=== PATIENT | male | born 1945 | race Caucasian/White ===

== ENCOUNTER 2019-04-25 21:31 | Inpatient (IN) ==
[2019-04-25 22:23] LABS: Basophils % 0.6 %; Eosinophils # 0.1 K/mcL (0.0-0.6); Eosinophils % 1.1 %; Hematocrit 43.3 % (37.5-50.1); Hemoglobin 14.2 g/dL (12.9-16.9); Immature Granulocytes % 0.2 % (0-4); Lymphocytes # 1.6 K/mcL (0.6-4.6); Lymphocytes % 24.9 %; Mean Corpuscular HGB Conc 32.8 g/dL (31.6-35.5); Mean Corpuscular Hemoglobin 31.9 pg (28.0-33.3); Mean Corpuscular Volume 97.3 fL (83.0-100.0); Monocytes # 0.6 K/mcL (0.0-1.3); Monocytes % 9.5 %; Neutrophils # 4.2 K/mcL (1.6-8.9); Platelet Count 218 K/mcL (140-400); Red Blood Count 4.45 M/mcL (4.19-5.50); Red Cell Distribution Width 13.7 % (11.5-14.5); Segmented Neutrophils % 63.7 %; White Blood Count 6.6 K/mcL (4.3-11.1)
[2019-04-25 22:44] LABS: BUN/Creatinine Ratio 25 (6-26); Blood Urea Nitrogen 23 mg/dL (8-23); Carbon Dioxide 26 mEq/L (23-29); Chloride 108 mEq/L (98-107); Glucose 126 mg/dL (70-105); Osmolality,Calculated 297 (280-300); Potassium 4.3 mEq/L (3.5-5.1); Sodium 141 mEq/L (136-145); eGFR For African Americans > 60 (> 60); eGFR For Non-African Americans > 60 (> 60)
[2019-04-25 22:45] LABS: Troponin I 0.03 ng/mL (< 0.04)
[2019-04-25] MEDS ORDERED: Aspirin 81 MG TAB.CHEW PO ONE (23:44)
--- NOTE | 2019-04-25 23:57 | Emergency Department Note ---
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 transplanted heart: [place] heart Associated angina: with unstable angina Qualified Code(s): I25.110 - Atherosclerotic heart disease of [place] coronary artery with unstable angina pectoris Disposition: Admitted As Inpatient Time of Disposition: 00:09 Chest Pain HPI - General Chief Complaint: ED Chest Pain Stated Complaint: CP Time Seen by Provider: 04/25/19 21:52 Source: patient Mode of arrival: ambulatory Limitations: no limitations Vital Signs Reviewed: Yes Nursing Notes Reviewed: Yes - History of Present Illness HPI Narrative: 73M with PMHx of [place] with 2 stents placed 4 years ago, DM, HTN, HLD presents emergency department after an episode of chest pain. Patient states that he has been having worsening chest pains over the past 5 weeks and has been taking his nitroglycerin more frequently. Patient's states that he will take his nitroglycerin up to 5 times per day. He has been trying to get an outpatient catheter scheduled but today when he was walking outside to feed his dog's he got a severe episode of chest pain which radiated down his left arm. He took 2 nitroglycerin and was about to take a third before the chest pain started improving. His brought him into the emergency department and he is currently chest pain-free. He describes the pain as a tightness and was associated with some nausea but no vomiting or diaphoresis. He denies fever, chills, cough, shortness of breath, abdominal pain. Severity scale (1-10): 8 - Related Data Home Medications Medication Instructions Recorded Confirmed Aspirin 81 mg PO DAILY 01/23/17 04/25/19 Atorvastatin [Lipitor] 20 mg PO HS 01/23/17 04/25/19 Cholecalciferol (D-3) [Vitamin D] 1,000 unit PO DAILY 01/23/17 04/25/19 Clopidogrel [Plavix] 75 mg PO DAILY 01/23/17 04/25/19 Furosemide [Lasix] 20 mg PO DAILY 01/23/17 04/25/19 Insulin Glargine [Lantus] 18 unit SQ HS PRN 01/23/17 04/25/19 Losartan [Cozaar] 25 mg PO TID 01/23/17 04/25/19 Metformin HCl [Glucophage] 500 mg PO QID 01/23/17 04/25/19 Metoprolol [Lopressor] 12.5 mg PO BID 01/23/17 04/25/19 Nitroglycerin [Nitrostat] 0.4 mg SL Q5M PRN 01/23/17 04/25/19 Pantoprazole Sodium [Protonix] 40 mg PO DAILY 01/23/17 04/25/19 Ranolazine [Ranexa] 500 mg PO BID 01/23/17 04/25/19 Empagliflozin [Jardiance] 10 mg PO DAILY 03/26/18 04/25/19 amLODIPine [Norvasc] 5 mg PO DAILY 03/26/18 04/25/19 Isosorbide Mononitrate 60 mg PO DAILY 04/25/19 04/25/19 Allergies Allergy/AdvReac Type Severity Reaction Status Date / Time tramadol [From Ultram] AdvReac See Verified 04/25/19 21:32 Comments All systems ED: reviewed and negative except as stated. Review of Systems: As Per HPI Constitutional: Denies: fever, chills, weakness Cardiovascular: Reports: chest pain. Denies: palpitations, dyspnea on exertion Respiratory: Denies: cough, dyspnea, wheezes Gastrointestinal: Denies: abdominal pain, nausea, vomiting Musculoskeletal: Denies: back pain, neck pain Neurological: Denies: headache Endocrine: Denies: fatigue Chest Pain PMH - Past Medical History Medical history: Reports: cancer, coronary artery disease, diabetes, GERD, hyperlipidemia, hypertension, kidney stones, myocardial infarction, renal disease, thyroid disease, other Surgical history: Reports: angioplasty/stent, cancer surgery, cholecystectomy, vasectomy, other Psychiatric history: Reports: depression, PTSD - Social History Smoking Status: Former smoker Alcohol use: Reports: none Drug use: Reports: none Physical Exam - General Limitations: no limitations General appearance: alert, in no apparent distress - Head Head exam: atraumatic, normocephalic - Eye Eye exam: Present: normal appearance, EOMI - Chest Chest inspection: Present: normal inspection. Absent: tenderness, rash - Respiratory Respiratory exam: Present: normal lung sounds bilaterally. Absent: wheezes - Cardiovascular Cardiovascular exam: Present: regular rate, normal rhythm - Abdominal Exam Abdominal exam: Present: soft, Non-Tender. Absent: distention, guarding, rebound, rigidity - Extremities Exam Extremities exam: Present: normal inspection. Absent: tenderness, pedal edema - Neurological Exam Neurological exam: Present: alert, oriented X3 - Psychiatric Psychiatric exam: Present: normal affect, normal mood - Skin Skin exam: Present: warm, dry, intact Course Vital Signs Temperature 97.9 F 04/25/19 21:33 Pulse Rate 72 04/25/19 21:33 Respiratory Rate 20 04/25/19 21:33 Blood Pressure 170/80 04/25/19 21:33 O2 Sat by Pulse Oximetry 98 04/25/19 21:33 Temperature 97.9 F 04/25/19 21:33 Pulse Rate 62 04/25/19 23:33 Respiratory Rate 16 04/25/19 23:33 Blood Pressure 147/73 04/25/19 23:33 O2 Sat by Pulse Oximetry 98 04/25/19 23:33 Oxygen Delivery Oxygen Delivery Room Air Chest Pain - MDM Narrative Medical decision making narrative: Patient presents with signs and symptoms concerning for unstable angina. We will obtain a cardiac workup and administer aspirin to the patient. 2330 - patient's EKG demonstrated some new ST segment depressions in the anterior leads. He is currently chest pain-free at this time and initial troponin was negative. Spoke with the on-call wildlife science professor Dr. Farrell who is made aware of this patient and does not think he needs intervention at this time. Patient will be admitted to the hospital for further cardiac workup and treatment of his unstable angina. 0008 - Pt has been accepted by Dr. Terrazas - Medical Records Medical records reviewed: Yes I reviewed the patient's medical records. - Lab Data Lab results reviewed: Yes I reviewed the patient's lab results. Result diagrams: 04/25/19 22:12 04/25/19 22:12 Lab Results 04/25/19 04/25/19 Range/Units 22:12 22:12 WBC 6.6 (4.3-11.1) K/mcL RBC 4.45 (4.19-5.50) M/mcL Hgb 14.2 (12.9-16.9) g/dL Hct 43.3 (37.5-50.1) % MCV 97.3 (83.0-100.0) fL MCH 31.9 (28.0-33.3) pg MCHC 32.8 (31.6-35.5) g/dL RDW 13.7 (11.5-14.5) % Plt Count 218 (140-400) K/mcL MPV 10.0 (9.4-12.4) fL Immature Gran % 0.2 (0-4) % Seg Neutrophils % 63.7 % Lymphocytes % 24.9 % Monocytes % 9.5 % Eosinophils % 1.1 % Basophils % 0.6 % Neutrophils # 4.2 (1.6-8.9) K/mcL Lymphocytes # 1.6 (0.6-4.6) K/mcL Monocytes # 0.6 (0.0-1.3) K/mcL Eosinophils # 0.1 (0.0-0.6) K/mcL Basophils # 0.0 (0.0-0.2) K/mcL Sodium 141 (136-145) mEq/L Potassium 4.3 (3.5-5.1) mEq/L Chloride 108 H (98-107) mEq/L Carbon Dioxide 26 (23-29) mEq/L BUN 23 (8-23) mg/dL Creatinine 0.92 (0.70-1.30) mg/dL Est GFR ( Amer) > 60 (> 60) Est GFR (Non-Af Amer) > 60 (> 60) BUN/Creatinine Ratio 25 (6-26) Glucose 126 H (70-105) mg/dL Calculated Osmolality 297 (280-300) Calcium 9.0 (8.6-10.3) mg/dL Troponin I 0.03 (< 0.04) ng/mL - Radiology Data Radiology results reviewed: Yes I reviewed the patient's radiology results. - EKG Data EKG attestation: Yes I reviewed and interpreted this EKG. EKG results narrative: EKG obtained at 2137 on 04/25/2019 Heart rate 65 bpm, MS interval 160, QRS duration 89, QT 389, QTC 400 Sinus rhythm with no ST segment elevations. There are ST segment depressions in leads V2, V3, V4 and V5. These are new from old EKG obtained 03/19/2018. T-wave inversion in lead 3 is unchanged from previous. No other acute changes. Heart Score - Score History: Moderately Suspicious EKG: Significant ST-Depression Age: Greater than 65 Risk Factors: Equal/Greater than 3 risk factor or history of atherosclerotic disease Troponin: Less than normal limit HEART Score Total: 7 Attestation Statement - Attestation Attestation: I, Edson Ervin, examined this patient and my medical decision-making was reviewed with the INSIDE METER TESTER/PA/Advanced Practice Nurse/Resident Physician. I agree with the documented findings, disposition and treatment plan as described except to the extent set forth below. 73-year-old male presents emergency Department with concerns of chest pain. Patient states he has a history of coronary artery disease with 2 stents in p [place]. Patient states that he is become increasingly short of breath and weak and fatigued with exertion. Today when he went to go feed his dog's he had acute onset of severe chest pain. Patient took bench of glycerin and is pain improved. Initial EKG was concerning for ACS with ST depressions in leads V2, V3, V4. The wildlife science professor was contacted regarding these EKG changes who recommended that it was not a STEMI and recommended the patient be admitted to the hospitalist for further care and evaluation. Initial troponin was negative. Patient will be admitted to the hospitalist for further care and evaluation.
[2019-04-26] MEDS ORDERED: *HR* Heparin 5,000 UNIT/ML VIAL IVP PRN ×2 (00:06)
[2019-04-26] MEDS ORDERED: *HR* Heparin 5,000 UNIT/ML VIAL IVP ONE (00:06)
[2019-04-26] MEDS: Heparin 25,000 UNIT/250 ML D5W 25,000 UNIT/250 ML IV.SOLN IVC SCH (00:41)
[2019-04-26 00:42] LABS: Heparin anti-factor XA UFH 0.04 IU/mL (0.30-0.70)
[2019-04-26 00:43] LABS: Prothrombin Time 11.4 Seconds (9.4-12.1)
[2019-04-26] MEDS ORDERED: Naloxone 0.4 MG/ML INJ IVP PRN (02:00)
[2019-04-26] MEDS ORDERED: D5% in Water 1,000 ML IVC PRN (02:01)
[2019-04-26] MEDS ORDERED: *HR* Dextrose 50 % in Water (Syg) 50 ML SYRINGE IVP PRN (02:01)
[2019-04-26] MEDS ORDERED: Dextrose Gel 15 GM/37.5 ML TUBE PO PRN ×2 (02:01)
--- NOTE | 2019-04-26 02:39 | Internal Med History&Physical ---
Date of Encounter: 04/26/19 Time of Encounter: 01:30 Internal Medicine - H&P: HPI Chief complaint: Chest Pain Admitted From: Home Plans for Post Hospital Care: Home History of present illness: Mr. Almaguer is a 73 year old male with past medical history significant for CAD with stents x2, ID, hypertension, hyperlipidemia, diabetes, neuropathy, gerd, kidney stones, depression, PTSD, and skin cancer who presents for complaints of intermittent substernal chest pain that radiates down his left arm and is described as tightness. Pain is exacerbated with exertion and improved with rest and nitroglycerin. Reports taking up to 5-6 nitroglycerin tablets per day. Reports pain is 8/10 when at its worst and has been happening more frequently and becoming more severe. Pain is associated with shortness of breath, lighthea dedness, and nausea. Reports following with [facility]iology at the [facility] who has been planning an outpatient heart catheterization but pain became more severe so came to ER. ER reported EKG as sinus rhythm with no ST elevations, however with new ST segment depressions in leads V2, V3, V4, and V5 when compared with EKG from 03/19/2018, and T wave inversion in lead 3 which was unchanged from previous. Due to EKG changes, ER consulted with mirror fabrication supervisor ethernet network architect Dr Farrell who did not feel patient needed intervention at this time but recommended admission for further evaluation. ER also obtained chest xray which showed a negative portable study. Patient was started on Heparin drip, given aspirin, and patient self administed one home nitro in ER. Reports having Echocardiogram completed at the [facility] in February 2019 but is unsure of the results. Pain currently remains resolved at this time. Currently denies any headache, chest pain, shortness of breath, abdominal pain, bowel or bladder changes. Checks blood sugars regularly at home and reports they have been averaging in the 100's. Follows regularly with his PCP and Cardiology at the [facility]. Past Med Surg Social Fam HX - Past Medical History Medical history: cancer, coronary artery disease, diabetes, GERD, hyperlipidemia, hypertension, kidney stones, myocardial infarction, other Additional medical history: leg cramps, ED, hx of bronchitis,OA, hx of nmsc Psychiatric history: depression, PTSD - Past Surgical History Surgical History: angioplasty/stent, cancer surgery, cholecystectomy, vasectomy, other Additional surgical history: kidney stone removed. cardiac stents x 2 - Social History Smoking Status: Former smoker Smokeless Tobacco Status: No Alcohol use: none Drug use: none - Family History Mother Age: 38 Living Status: Sister Hx Family Neurologic Disorders: Yes (CVA) Brother Hx Family Endocrine Disorder: Yes (DM) Internal Medicine - H&P: Meds Aspirin 81 mg PO DAILY 01/23/17 [History] Atorvastatin [Lipitor] 20 mg PO HS 01/23/17 [History] Cholecalciferol (D-3) [Vitamin D] 1,000 unit PO DAILY 01/23/17 [History] Clopidogrel [Plavix] 75 mg PO DAILY 01/23/17 [History] Furosemide [Lasix] 20 mg PO DAILY 01/23/17 [History] Insulin Glargine [Lantus] 18 unit SQ HS PRN 01/23/17 [History] Losartan [Cozaar] 25 mg PO TID 01/23/17 [History] Metformin HCl [Glucophage] 500 mg PO QID 01/23/17 [History] Metoprolol [Lopressor] 12.5 mg PO BID 01/23/17 [History] Nitroglycerin [Nitrostat] 0.4 mg SL Q5M PRN 01/23/17 [History] Pantoprazole Sodium [Protonix] 40 mg PO DAILY 01/23/17 [History] Ranolazine [Ranexa] 500 mg PO BID 01/23/17 [History] Empagliflozin [Jardiance] 10 mg PO DAILY 03/26/18 [History] amLODIPine [Norvasc] 5 mg PO DAILY 03/26/18 [History] Isosorbide Mononitrate 60 mg PO DAILY 04/25/19 [History] Allergy/AdvReac Type Severity Reaction Status Date / Time tramadol [From Ultram] AdvReac See Verified 04/25/19 21:32 Comments All Systems PM: A 10-system review of systems was performed and is negative for pertinent findings except as documented above in the HPI. - Constitutional Vitals: Temp Pulse Resp BP Pulse Ox 98.6 F 58 16 158/75 96 04/26/19 01:39 04/26/19 01:39 04/26/19 01:39 04/26/19 01:39 04/26/19 01:39 Exam: General: Alert and oriented. Skin:Normal color, no rash, no lesions. Cardiovascular:Heart sounds distant, no rubs, murmurs or gallops. No JVD. Pulse regular. Lungs:Normal breath sounds, no wheezes or crackles. Abdomen:Soft, non-tender, no rigidity. Extremities:No deformity, tenderness, no joint swelling or clubbing. Nonpitting edema noted to bilateral lower extremities. Neurological:Normal cognition and motor skills. Pulses:Carotid and radial pulses normal +2. Rest of the physical exam is non contributory. Internal Med - H&P Results - Labs CBC & Chem 7: 04/25/19 22:12 04/25/19 22:12 Labs: Short CBC 04/25/19 Range/Units 22:12 WBC 6.6 (4.3-11.1) K/mcL Hgb 14.2 (12.9-16.9) g/dL Hct 43.3 (37.5-50.1) % Plt Count 218 (140-400) K/mcL Neutrophils # 4.2 (1.6-8.9) K/mcL BMP 04/25/19 22:12 Sodium 141 Potassium 4.3 Chloride 108 H Carbon Dioxide 26 BUN 23 Creatinine 0.92 Glucose 126 H Calcium 9.0 Cardiac Enzymes 04/25/19 Range/Units 22:12 Troponin I 0.03 (< 0.04) ng/mL - Impressions ITS Impressions Chest X-Ray 04/25/19 22:40 IMPRESSION: Negative portable study. D/ / Chantell Lang Cha, MD / Chantell Lang Cha, MD Interpreting Provider: Chantell Lang Cha, MD - Assessment and Plan (1) Chest pain Current Visit: Yes Status: Acute Assessment and plan: Presents for intermittent chest pain worse with exertion over past 5 weeks getting progressively worse. Reports taking up to 5-6 nitroglycerin tablets per day which improves pain. Follows with [facility] who has been planning outpatient heart catheterization but pain became more intense so came to ER. ER reported EKG as sinus rhythm with no ST elevations, however with new ST segme nt depressions in leads V2, V3, V4, and V5 when compared with EKG from 03/19/2018, and T wave inversion in lead 3 which was unchanged from previous. Due to EKG changes, ER consulted with mirror fabrication supervisor ethernet network architect Dr Farrell who did not feel patient needed intervention at this time but recommended admission for further evaluation. ER started patient on heparin drip, will continue same. Initial troponin negative, serial troponins ordered. Cardiology consult ordered, will need called in a.m. Continuos cardiac monitoring. NPO. Qualifiers: Chest pain type: unspecified Qualified Code(s): R07.9 - Chest pain, unspecified (2) Diabetes mellitus Current Visit: Yes Status: Chronic Assessment and plan: Hold home diabetic medications. Sliding scale insulin ordered. Accu-Chek's ordered. Qualifiers: Diabetes mellitus type: type 2 Diabetes mellitus usp insulin use: unspecified usp insulin use status Diabetes mellitus complication status: with other specified complication Qualified Code(s): E11.69 - Type 2 diabetes mellitus with other specified complication (3) Hypertension Current Visit: Yes Status: Chronic Assessment and plan: Continue home medications once verified. Qualifiers: Hypertension type: unspecified Qualified Code(s): I10 - Essential (primary) hypertension (4) GERD (gastroesophageal reflux disease) Current Visit: Yes Status: Chronic Assessment and plan: Continue home medications once verified. Qualifiers: Qualified Code(s): K21.9 - Gastro-esophageal reflux disease without esophagitis - Time Spent With Patient Total time spent is greater than 50% in coordination of care (as documented) at patient's floor/unit and/or counseling patient:
[2019-04-26] MEDS: Insulin LISPRO 300 UNITS/3 ML VIAL SQ SCH ×2 (05:21→18:32)
[2019-04-26 05:55] LABS: Basophils % 0.5 %; Eosinophils # 0.1 K/mcL (0.0-0.6); Hematocrit 39.3 % (37.5-50.1); Hemoglobin 12.8 g/dL (12.9-16.9); Immature Granulocytes % 0.3 % (0-4); Lymphocytes # 2.1 K/mcL (0.6-4.6); Lymphocytes % 33.4 %; Mean Corpuscular HGB Conc 32.6 g/dL (31.6-35.5); Mean Corpuscular Hemoglobin 31.4 pg (28.0-33.3); Mean Corpuscular Volume 96.6 fL (83.0-100.0); Mean Platelet Volume 10.3 fL (9.4-12.4); Monocytes # 0.5 K/mcL (0.0-1.3); Neutrophils # 3.6 K/mcL (1.6-8.9); Platelet Count 188 K/mcL (140-400); Red Blood Count 4.07 M/mcL (4.19-5.50); Red Cell Distribution Width 13.6 % (11.5-14.5); Segmented Neutrophils % 56.8 %; White Blood Count 6.3 K/mcL (4.3-11.1)
[2019-04-26 06:13] LABS: BUN/Creatinine Ratio 29 (6-26); Blood Urea Nitrogen 24 mg/dL (8-23); Calcium 8.7 mg/dL (8.6-10.3); Carbon Dioxide 27 mEq/L (23-29); Chloride 107 mEq/L (98-107); Glucose 114 mg/dL (70-105); Osmolality,Calculated 297 (280-300); Potassium 3.7 mEq/L (3.5-5.1); Sodium 141 mEq/L (136-145); eGFR For African Americans > 60 (> 60); eGFR For Non-African Americans > 60 (> 60)
[2019-04-26] MEDS ORDERED: Nitroglycerin 0.4 MG TAB.SUBL SL PRN (10:57)
--- NOTE | 2019-04-26 12:02 | Cardiology Consult Note ---
Date of Encounter: 04/26/19 Time of Encounter: 09:30 Assessment and Plan (1) Non-STEMI (non-ST elevated myocardial infarction) Current Visit: Yes Status: Acute Pt's symptoms consistent with unstable angina. Has known CAD. Troponin slightly elevated at 0.26. Currently CP free. Will plan on cardiac catheterization on Sunday. Discussed with patient and daughter. Continue aspirin, Plavix, beta blockade, heparin gtt, statin. (2) Unstable angina Current Visit: Yes Status: Acute (3) CAD (coronary artery disease) Current Visit: Yes Status: Chronic Qualifiers: Coronary Disease-Associated Artery/Lesion type: [place] artery [place] vs. transplanted heart: [place] heart Associated angina: with unstable angina Qualified Code(s): I25.110 - Atherosclerotic heart disease of [place] coronary artery with unstable angina pectoris (4) Hypertension Current Visit: No Status: Chronic Continue current meds. Qualifiers: Hypertension type: essential hypertension Qualified Code(s): I10 - Essential (primary) hypertension Discussion w patient/family: The assessment and plan as outlined above was discussed with the patient and/or family members who expressed understanding and agreement. All questions were answered. Thank you for involving us in the care of your patient. Please call with any questions. History of Present Illness Consult date: 04/26/19 Requesting physician: Chai Quintero Consult reason: chest pain Chief complaint: chest pain History of present illness: Mr. Almaguer is a 73 year old male with CAD s/p PCI, HTN, hyperlipidemia, DM presents to [facility] with c/o CP. For past 6 weeks, pt having intermittent CP radiating down L arm with exertion. Associated with SOB, lightheadedness. Has had a few episodes awake him from sleep, but usually notices mostly when exerting self. Has been intermittently taking one SL NTG which resolves pain. Yesterday, had episode of CP while out feeding dog that didn't resolve until after taking 2 SL NTG therefore presented for further evaluation/tx. Feels similar to previous angina. Denies palpitations, syncope. Denies weight gain, PND. Currently sleeping on 3 pillows for past 3 weeks- states will have recurrent CP if lies flat on back. Has known history of CAD s/p PCI RCA in 2014. No cardiac catheterizations or testing since that time. Currently CP free. EKG demonstrates NSR with nonspecific ST-T wave changes. Troponins 0.03, 0.26. Cardiac catheterization February 2015: Patient had successful PTCA/Drug-Eluting Stent placement in the proximal RCA. There is severe one vessel coronary artery disease. The left ventricle is normal and has normal contractility EF 55%. Right dominant * Left Main Coronary Artery There is a 20% stenosis in the mid LMCA. * Left Anterior Descending There is a 40% stenosis in the Mid LAD. * Circumflex The Circumflex is angiographically free of disease. The 1st Marginal is angiographically free of disease. * Right Coronary Artery There is a 90% stenosis in the Proximal RCA. Past Med Surg Social Fam HX - Past Medical History Medical history: cancer, coronary artery disease, diabetes, GERD, h yperlipidemia, hypertension, kidney stones, myocardial infarction, other Additional medical history: leg cramps, ED, hx of bronchitis,OA, hx of nmsc Psychiatric history: depression, PTSD - Past Surgical History Surgical History: angioplasty/stent, cancer surgery, cholecystectomy, vasectomy, other Additional surgical history: kidney stone removed. cardiac stents x 2 - Social History Smoking Status: Former smoker Smokeless Tobacco Status: No Alcohol use: none Drug use: none - Family History Mother Age: 38 Living Status: Sister Hx Family Neurologic Disorders: Yes (CVA) Brother Hx Family Endocrine Disorder: Yes (DM) Medications and Allergies Aspirin 81 mg PO DAILY 01/23/17 [History] Atorvastatin [Lipitor] 20 mg PO HS 01/23/17 [History] Cholecalciferol (D-3) [Vitamin D] 1,000 unit PO DAILY 01/23/17 [History] Clopidogrel [Plavix] 75 mg PO DAILY 01/23/17 [History] Furosemide [Lasix] 20 mg PO DAILY 01/23/17 [History] Insulin Glargine [Lantus] 18 unit SQ HS PRN 01/23/17 [History] Losartan [Cozaar] 25 mg PO TID 01/23/17 [History] Metformin HCl [Glucophage] 500 mg PO QID 01/23/17 [History] Metoprolol [Lopressor] 12.5 mg PO BID 01/23/17 [History] Nitroglycerin [Nitrostat] 0.4 mg SL Q5M PRN 01/23/17 [History] Pantoprazole Sodium [Protonix] 40 mg PO DAILY 01/23/17 [History] Ranolazine [Ranexa] 500 mg PO BID 01/23/17 [History] Empagliflozin [Jardiance] 10 mg PO DAILY 03/26/18 [History] amLODIPine [Norvasc] 5 mg PO DAILY 03/26/18 [History] Isosorbide Mononitrate 60 mg PO DAILY 04/25/19 [History] Allergy/AdvReac Type Severity Reaction Status Date / Time tramadol [From Ultram] AdvReac See Verified 04/25/19 21:32 Comments All Systems Review: The remainder of the systems were reviewed and are negative - Cardiovascular Cardiovascular: as per HPI Physical Examination General: Conversant, No Apparent Distress HEENT: Atraumatic, Normocephaly, Mucus Membranes Moist Neck: No JVD, Normal carotid pulses Cardiac: Reg Rate and Rhythm, Normal S1 and S2, No Murmur Lungs: Normal Breath Sounds, No Wheeze, Rales, Rhonchi Neuro: Alert and responsive, No focal deficits noted Abdomen: Soft, Non-Tender Skin: No rashes noted on visualized skin Musculoskeletal: No Chest Wall Tenderness Extremities: No Clubbing, No Cyanosis, No Edema, Normal Pulses Results 04/26/19 04:45 04/26/19 04:45 Lab Results 04/25/19 04/25/19 04/26/19 22:12 22:12 00:18 WBC 6.6 Hgb 14.2 Hct 43.3 Plt Count 218 INR 1.0 Sodium 141 Potassium 4.3 Chloride 108 H Carbon Dioxide 26 BUN 23 Creatinine 0.92 Glucose 126 H Calcium 9.0 Troponin I 0.03 04/26/19 04/26/19 04/26/19 04:45 04:45 04:45 WBC 6.3 Hgb 12.8 L Hct 39.3 Plt Count 188 INR Sodium 141 Potassium 3.7 Chloride 107 Carbon Dioxide 27 BUN 24 H Creatinine 0.82 Glucose 114 H Calcium 8.7 Troponin I 0.26 H* 04/26/19 09:56 WBC Hgb Hct Plt Count INR Sodium Potassium Chloride Carbon Dioxide BUN Creatinine Glucose Calcium Troponin I 1.11 H* - EKG Interpretation EKG results cardiology: personally reviewed (EKG- NSR with nonspecific ST-T wave changes) Consult Discharge Plan - Plan Referrals: [facility] [Primary Care Provider] -
[2019-04-26] MEDS ORDERED: Perflutren Lipid Microsphere 1.3 ML in 0.9 % Sodium Chloride 8.7 ML IVP ONE (12:48)
--- NOTE | 2019-04-26 15:24 | Electrocardiograph Report ---
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
--- NOTE | 2019-04-26 15:32 | Electrocardiograph Report ---
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
[2019-04-26] MEDS: Aspirin 81 MG TAB.CHEW PO SCH (18:34)
[2019-04-26] MEDS: Ranolazine 500 MG TAB.ER.12H PO SCH (20:49)
[2019-04-27] MEDS: Heparin 25,000 UNIT/250 ML D5W 25,000 UNIT/250 ML IV.SOLN IVC SCH (00:35)
[2019-04-27] MEDS: Insulin LISPRO 300 UNITS/3 ML VIAL SQ SCH ×3 (09:14→17:15)
[2019-04-27] MEDS: Ranolazine 500 MG TAB.ER.12H PO SCH ×2 (09:17→20:38)
[2019-04-27] MEDS: Aspirin 81 MG TAB.CHEW PO SCH (09:17)
--- NOTE | 2019-04-27 10:25 | Internal Med Progress Note ---
Hospitalist Progress Note - Encounter Date of Encounter: 04/27/19 Time of Encounter: 10:22 - Subjective Interval History: Mr. Almaguer is a 73 year old male with past medical history significant for CAD with stents x2, DE, hypertension, hyperlipidemia, diabetes, neuropathy, gerd, kidney stones, depression, PTSD, and skin cancer who presents for complaints of intermittent substernal chest pain that radiates down his left arm and is described as tightness. Pain is exacerbated with exertion and improved with rest and nitroglycerin. Reports taking up to 5-6 nitroglycerin tablets per day. Reports pain is 8/10 when at its worst and has been happening more frequently and becoming more severe. Pain is associated with shortness of breath, lightheadedness, and nausea. Reports following with Cardiology at the [facility] who has been planning an outpatient heart catheterization but pain became more severe so came to ER. ER reported EKG as sinus rhythm with no ST elevations, however with new ST segment depressions in leads V2, V3, V4, and V5 when compared with EKG from 03/19/2018, and T wave inversion in lead III which was unchanged from previous. Due to EKG changes, ER consulted with ornamental iron worker treating plant pumper Dr Farrell who did not feel patient needed intervention at this time but recommended admission for further evaluation. ER also obtained chest xray which showed a negative portable study. Patient was started on Heparin drip, given aspirin, and patient self administed one home nitro in ER. Reports having Echocardiogram completed at the CT in February 2019 but is unsure of the results. Pain currently remains resolved at this time. Cu rrently denies any headache, chest pain, shortness of breath, abdominal pain, bowel or bladder changes. Checks blood sugars regularly at home and reports they have been averaging in the 100's. Follows regularly with his PCP and Cardiology at the CT. Trop was 0.03, 0.26. and 1.11. Started on heparin gtt. cardiology planned LHC on Sunday. He is chest pain free currently. - Exam Vitals: Temp Pulse Resp BP Pulse Ox 97.8 F 66 14 111/69 98 04/27/19 07:57 04/27/19 09:13 04/27/19 07:57 04/27/19 07:57 04/27/19 07:57 Exam: General: Alert and oriented. Skin:Normal color, no rash, no lesions. Cardiovascular:Heart sounds distant, no rubs, murmurs or gallops. No JVD. Pulse regular. Lungs:Normal breath sounds, no wheezes or crackles. Abdomen:Soft, non-tender, no rigidity. Extremities:No deformity, tenderness, no joint swelling or clubbing. Nonpitting edema noted to bilateral lower extremities. Neurological:Normal cognition and motor skills. Pulses:Carotid and radial pulses normal +2. Rest of the physical exam is non contributory. - Assessment and Plan (1) Non-STEMI (non-ST elevated myocardial infarction) Current Visit: Yes Status: Acute Assessment and Plan: EKG showed st-t depression and inverted t wave on II, III, and aVF, no obvious st-t elevation. Trop 0.03, 0.26, and 1.11. Started on Heparin gtt, Pt received asa and plavix per cardiology. On BB, bradycardia HR 43-62 overnight. Currently chest pain free, Plan LHC on Sunday. (2) Diabetes mellitus Current Visit: Yes Status: Chronic Assessment and Plan: Hold home diabetic medications. Sliding scale insulin ordered. Accu-Chek's ordered. BG well controlled at 100-130. (3) Hypertension Current Visit: No Status: Chronic Assessment and Plan: BP well controlled, bradycardia (hr 43-62)overnight. (4) GERD (gastroesophageal reflux disease) Current Visit: Yes Status: Chronic Assessment and Plan: Continue home medications. DVT Prophylaxis: Heparin gtt. - Time Spent with Patient Total time spent is greater than 50% in coordination of care (as documented) at patient's floor/unit and/or counseling patient: Greater than 35 minutes Plan of Care Discussed with: patient Internal Medicine: Result - Labs CBC & Chem 7: 04/26/19 04:45 04/26/19 04:45 Labs: Cardiac Enzymes 04/26/19 Range/Units 09:56 Troponin I 1.11 H* (< 0.04) ng/mL - ABG Interpretation ABG results: PT/INR, D-dimer PT 11.4 Seconds (9.4-12.1) 04/26/19 00:18 - Impressions Impressions Echocardiogram 04/26/19 13:39 Impressions: LVEF 55%. Normal LV chamber size, wall thickness and overall function. Mild segmental left ventricular systolic dysfunction. Moderate left ventricular diastolic dysfunction. Normal right ventricular structure and function. Mild aortic sclerosis. Mean gradient 10 mmHg. Mild pulmonary hypertension. Left Ventricular Wall Motion: Rest Echo Findings The basal inferior wall was hypokinetic. All other wall segments showed normal motion. Findings: Study Quality * Technically adequate exam. ECG Findings * Sinus bradycardia. Left Ventricle * LVEF 55%. * Normal LV chamber size, wall thickness and overall function. * Mild segmental left ventricular systolic dysfunction. * Moderate left ventricular diastolic dysfunction. Right Ventricle * Normal right ventricular structure and function. Left Atrium * Normal left atrial size. Right Atrium * Normal right atrial size. Interatrial Septum * Interatrial septum not well evaluated. Aortic Valve * Trileaflet aortic valve. * Mildly sclerotic aortic valve leaflets. * Trace aortic regurgitation. * Mild aortic sclerosis. Mean gradient 10 mmHg. Mitral Valve * Normal mitral valve structure and function. * No mitral stenosis. * Trace mitral regurgitation. Tricuspid Valve * Normal tricuspid valve structure and function. * Trace tricuspid regurgitation. * Mild pulmonary hypertension. Pulmonic Valve * Normal pulmonic valve structure and function. * No pulmonic regurgitation. Aorta * Normally sized aortic root. Pericardium * There is a trivial pericardial effusion present. IVC * Normal IVC dimensions and inspiratory collapse. Pulmonary Artery * Normal visualized portions of the main pulmonary artery. Consult Discharge Plan - Plan [facility]errals: [facility] [Primary Care Provider] - (2) Diabetes mellitus Qualifiers: Diabetes mellitus type: type 2 Diabetes mellitus long term care phlebotomist insulin use: unspecified nursing home insulin use status Diabetes mellitus complication status: with other specified complication Qualified Code(s): E11.69 - Type 2 diabetes mellitus with other specified complication (3) Hypertension Qualifiers: Hypertension type: essential hypertension Qualified Code(s): I10 - Essential (primary) hypertension (4) GERD (gastroesophageal reflux disease) Qualifiers: Qualified Code(s): K21.9 - Gastro-esophageal reflux disease without esophagitis
--- NOTE | 2019-04-27 11:49 | Cardiology Progress Note ---
Date of Encounter: 04/27/19 Time of Encounter: 11:00 Assessment and Plan (1) Non-STEMI (non-ST elevated myocardial infarction) Current Visit: Yes Status: Acute Pt's symptoms consistent with unstable angina. Has known CAD. Troponin elevated at 0.26. 1.11. Currently CP free. Will plan on cardiac catheterization on Sunday. Discussed with patient and daughter. Continue aspirin, Plavix, beta blockade, heparin gtt, statin. (2) Unstable angina Current Visit: Yes Status: Acute (3) CAD (coronary artery disease) Current Visit: Yes Status: Chronic Qualifiers: Coronary Disease-Associated Artery/Lesion type: [place] artery [place] vs. transplanted heart: [place] heart Associated angina: with unstable angina Qualified Code(s): I25.110 - Atherosclerotic heart disease of [place] coronary artery with unstable angina pectoris (4) Hypertension Current Visit: No Status: Chronic Continue current meds. Qualifiers: Hypertension type: essential hypertension Qualified Code(s): I10 - Es sential (primary) hypertension Discussion w patient/family: The assessment and plan as outlined above was discussed with the patient and/or family members who expressed understanding and agreement. All questions were answered. Thank you for involving us in the care of your patient. Please call with any questions. Subjective Principal diagnosis: nonSTEMI Interval history: Pt currently doing well- CP free. No events overnight. Objective Vital Signs, Last 4 Hours Temp Pulse Resp BP Pulse Ox 04/27/19 11:07 98.0 F 45 16 118/65 97 04/27/19 09:13 66 04/27/19 07:57 97.8 F 48 14 111/69 98 General: Conversant, No Apparent Distress HEENT: Atraumatic, Normocephaly, Mucus Membranes Moist Neck: No JVD, Normal carotid pulses Cardiac: Reg Rate and Rhythm, Normal S1 and S2, No Murmur Lungs: Normal Breath Sounds, No Wheeze, Rales, Rhonchi Neuro: Alert and responsive, No focal deficits noted Abdomen: Soft, Non-Tender Skin: No rashes noted on visualized skin Musculoskeletal: No Chest Wall Tenderness Extremities: No Clubbing, No Cyanosis, No Edema, Normal Pulses Results 04/26/19 04:45 04/26/19 04:45 Consult Discharge Plan - Plan Referrals: [facility] [Primary Care Provider] -
[2019-04-28] MEDS: Heparin 25,000 UNIT/250 ML D5W 25,000 UNIT/250 ML IV.SOLN IVC SCH ×2 (00:36→13:09)
[2019-04-28 05:18] LABS: Hematocrit 41.2 % (37.5-50.1); Hemoglobin 13.8 g/dL (12.9-16.9); Mean Corpuscular HGB Conc 33.5 g/dL (31.6-35.5); Mean Corpuscular Hemoglobin 31.9 pg (28.0-33.3); Mean Corpuscular Volume 95.2 fL (83.0-100.0); Platelet Count 183 K/mcL (140-400); Red Blood Count 4.33 M/mcL (4.19-5.50); Red Cell Distribution Width 13.6 % (11.5-14.5); White Blood Count 5.2 K/mcL (4.3-11.1)
[2019-04-28 05:32] LABS: BUN/Creatinine Ratio 23 (6-26); Blood Urea Nitrogen 24 mg/dL (8-23); Calcium 9.1 mg/dL (8.6-10.3); Carbon Dioxide 27 mEq/L (23-29); Chloride 105 mEq/L (98-107); Glucose 123 mg/dL (70-105); Osmolality,Calculated 295 (280-300); Potassium 3.9 mEq/L (3.5-5.1); Sodium 140 mEq/L (136-145); eGFR For African Americans > 60 (> 60); eGFR For Non-African Americans > 60 (> 60)
[2019-04-28] MEDS ORDERED: Heparin 1,000 UNITS/500 mL 500 ML ONE ×3 (07:41→10:18)
[2019-04-28] MEDS ORDERED: Iopamidol 125 ML INFUS..BTL ONE ×3 (07:41→10:18)
[2019-04-28] MEDS ORDERED: Nitroglycerin 1,000 MCG/10 ML VIAL IV ONE ×2 (07:41→10:18)
[2019-04-28] MEDS ORDERED: *HR* Heparin 10,000 UNIT/10 ML VIAL ONE ×3 (07:41→10:18)
[2019-04-28] MEDS ORDERED: Verapamil 5 MG/2 ML VIAL ONE (07:41)
[2019-04-28] MEDS ORDERED: 0.9 % Sodium Chloride 1,000 ML ONE ×3 (07:41→10:18)
[2019-04-28] MEDS ORDERED: *HR* FentaNYL (PF) 100 MCG/2 ML VIAL ONE ×2 (07:45→10:41)
[2019-04-28] MEDS ORDERED: *HR* Midazolam HCl 2 MG/2 ML VIAL ONE ×2 (07:45→10:41)
--- NOTE | 2019-04-28 07:59 | Pre-Sedation Evaluation ---
Pre-sedation evaluation - Pre-sedation checklist Date of procedure: 04/28/19 Procedure: heart cath Recent Vitals: Last Vital Signs Temp 97.4 F L 04/28/19 07:17 Pulse 46 04/28/19 07:17 Resp 16 04/28/19 07:17 BP 140/76 04/28/19 07:17 Pulse Ox 100 04/28/19 07:17 H&P (including ROS) documented in medical record: Yes Previous reaction to sedatives/anesthetics: No Dietary Status: NPO after Midnight Dentition: No loose teeth or bridges ASA Classification *see protocol: CLASS II-Mild systemic disease Plan of Care: Pt appropriate candidate for procedure/moderate/conscious sedation, Risks/benefits of procedure/sedation discussed w/ patient/family Cardiac Registry (Cardio Only) - Functional Capacity Functional Capacity: >=4 METS with symptoms - Clincal Frailty Scale Clinical Frailty Scale: Managing Well
--- NOTE | 2019-04-28 08:57 | Internal Med Progress Note ---
Hospitalist Progress Note - Encounter Date of Encounter: 04/28/19 Time of Encounter: 08:55 - Subjective Interval History: Mr. Almaguer is a 73 year old male with past medical history significant for CAD with stents x2, DE, hypertension, hyperlipidemia, diabetes, neuropathy, gerd, kidney stones, depression, PTSD, and skin cancer who presents for complaints of intermittent substernal chest pain that radiates down his left arm and is described as tightness. EKG showed st-t depression with inverted t wave at inferior leads. Trop was 0.03, 0.26. and 1.11. Started on heparin gtt. cardiology planned LHC today. He is chest pain free currently. - Exam Vitals: Temp Pulse Resp BP Pulse Ox 97.4 F L 46 16 140/76 100 04/28/19 07:17 04/28/19 07:17 04/28/19 07:17 04/28/19 07:17 04/28/19 07:17 Exam: General: Alert and oriented. Skin:Normal color, no rash, no lesions. Cardiovascular:Heart sounds distant, no rubs, murmurs or gallops. No JVD. Pulse regular. Lungs:Normal breath sounds, no wheezes or crackles. Abdomen:Soft, non-tender, no rigidity. Extremities:No deformity, tenderness, no joint swelling or clubbing. Nonpitting edema noted to bilateral lower extremities. Neurological:Normal cognition and motor skills. Pulses:Carotid and radial pulses normal +2. Rest of the physical exam is non contributory. - Assessment and Plan (1) Non-STEMI (non-ST elevated myocardial infarction) Current Visit: Yes Status: Acute Assessment and Plan: EKG showed st-t depression and inverted t wave on II, III, and aVF, no obvious st-t elevation. Trop 0.03, 0.26, and 1.11. Started on Heparin gtt, Pt received asa and plavix per cardiology. On BB, bradycardia HR 45-66 overnight. Currently chest pain free, Plan LHC today. (2) Diabetes mellitus Current Visit: Yes Status: Chronic Assessment and Plan: Hold home diabetic medications. Sliding scale insulin ordered. Accu-Chek's ordered. BG well controlled at 100-130. (3) Hypertension Current Visit: No Status: Chronic Assessment and Plan: BP well controlled, bradycardia (hr 45-66)overnight. (4) GERD (gastroesophageal reflux disease) Current Visit: Yes Status: Chronic Assessment and Plan: Continue home medications. DVT Prophylaxis: Heparin gtt. - Time Spent with Patient Total time spent is greater than 50% in coordination of care (as documented) at patient's floor/unit and/or counseling patient: Greater than 35 minutes Plan of Care Discussed with: patient Internal Medicine: Result - Labs CBC & Chem 7: 04/28/19 04:44 04/28/19 04:44 Labs: Short CBC 04/28/19 Range/Units 04:44 WBC 5.2 (4.3-11.1) K/mcL Hgb 13.8 (12.9-16.9) g/dL Hct 41.2 (37.5-50.1) % Plt Count 183 (140-400) K/mcL BMP 04/28/19 04:44 Sodium 140 Potassium 3.9 Chloride 105 Carbon Dioxide 27 BUN 24 H Creatinine 1.03 Glucose 123 H Calcium 9.1 - ABG Interpretation ABG results: PT/INR, D-dimer PT 11.4 Seconds (9.4-12.1) 04/26/19 00:18 Consult Discharge Plan - Plan [facility]errals: [facility] [Primary Care Provider] - ____ (2) Diabetes mellitus Qualifiers: Diabetes mellitus type: type 2 Diabetes mellitus fdc insulin use: unspecified machine long goods helper insulin use status Diabetes mellitus complication status: with other specified complication Qualified Code(s): E11.69 - Type 2 diabetes mellitus with other specified complication (3) Hypertension Qualifiers: Hypertension type: essential hypertension Qualified Code(s): I10 - Essential (primary) hypertension (4) GERD (gastroesophageal reflux disease) Qualifiers: Qualified Code(s): K21.9 - Gastro-esophageal reflux disease without esophagitis
[2019-04-28] MEDS ORDERED: 0.9 % Sodium Chloride 500 ML ONE (09:11)
[2019-04-28] MEDS ORDERED: Adenosine 90 MG/30 ML MLS IV ONE (09:24)
[2019-04-28] MEDS ORDERED: Water for inj. (sterile) 10 ML ONE (11:02)
[2019-04-28] MEDS ORDERED: Ondansetron 4 MG/2 ML VIAL IVP PRN (11:19)
[2019-04-28] MEDS ORDERED: Acetaminophen 325 MG TABLET PO PRN (11:19)
[2019-04-28] MEDS ORDERED: *HR* HYDROcodone/Acet 5/325 mg TABLET PO PRN (11:19)
--- NOTE | 2019-04-28 11:19 | Event Note ---
Date of Encounter: 04/28/19 Time of Encounter: 11:10 - Cardiology Event Note Prelim [facility] findings reviewed with Dr. Prince; multivessel CAD, recommend CT surgery consult. Consult placed. TTE 04/26/19: LVEF 55%. Normal LV chamber size, wall thickness and overall function. Mild segmental left ventricular systolic dysfunction. Moderate left ventricular diastolic dysfunction. Normal right ventricular structure and function. Mild aortic sclerosis. Mean gradient 10 mmHg. Mild pulmonary hypertension. Left Ventricular Wall Motion: Rest Echo Findings The basal inferior wall was hypokinetic. All other wall segments showed normal motion.
--- NOTE | 2019-04-28 11:23 | Event Note ---
Date of Encounter: 04/28/19 Time of Encounter: 11:20 - Cardiology Event Note mLAD 80-85%. ostial RCA 60-70%, pRCA hazy 80-90% ISR, mRCA 99%. JOVON [address] surgery for CABG consult.
[2019-04-28] MEDS: Insulin LISPRO 300 UNITS/3 ML VIAL SQ SCH ×3 (11:52→16:37)
[2019-04-28] MEDS: Aspirin 81 MG TAB.CHEW PO SCH (11:59)
[2019-04-28] MEDS: Ranolazine 500 MG TAB.ER.12H PO SCH ×2 (11:59→21:23)
--- NOTE | 2019-04-28 17:47 | Cardiothoracic Consult Note ---
Date of Encounter: 04/28/19 Time of Encounter: 17:42 Assessment and Plan (1) Non-STEMI (non-ST elevated myocardial infarction) Current Visit: Yes Status: Acute The patient is a 73-year-old type II diabetic, hypertensive man with hypercholesterolemia and known CAD. During the last 6 weeks he has experienced exertional substernal chest pain radiating to his left arm, as well as associated shortness of breath and lightheadedness. The symptoms would resolve with rest and sublingual nitroglycerin. On 04/25/2019, he had severe substernal chest pain which did not respond to nitroglycerin. He was evaluated at [facility] emergency department and found to have elevated troponin I levels consistent with an acute NSTEMI. He was admitted for further cardiac care. A transthoracic echocardiogram revealed an LVEF 55% with normal left ventricular chamber size, wall thickness, and function. Moderate left ventricular diastolic dysfunction and mild pulmonary hypertension were noted. Cardiac catheterization performed today revealed severe two-vessel CAD and an LVEF 55%. In particular, the patient has an 80-90% mid LAD lesion, a 60% ostial RCA lesion, a 60% proximal RCA lesion, and a 99% mid RCA lesion. He has been recommended for CABG. I concur with this recommendation. The STS risk calculator reveals an operative mortality risk 1%, renal failure risk 1.19%, permanent stroke risk 1.08%, deep sternal wound infection risk 0.29%, and reoperation risk 2.47%. The patient has been on chronic Plavix and this will need to be stopped for 4-5 days prior to CABG. Tentatively, the patient will undergo CABG later this week by Dr. Celso Romo. The assessment and plan as outlined above was discussed with the patient and/or family members who expressed understanding and agreement. All questions were answered. - History of Present Illness Consult date: 04/28/19 Requesting physician: Jesus Prince Consult reason: CABG evaluation Chief complaint: NSTEMI History of present illness: Mr. Almaguer is a 73 year old type II diabetic, hypertensive man with hypercholesterolemia and known CAD. The patient's cardiac history dates back to February 2015 at which time he underwent PCI with RCA stent placement 2. The patient did well until 6 weeks prior to admission, when he began experiencing exertional substernal chest pain radiating to his left arm, as well as associated shortness of breath and lightheadedness. The symptoms progressed during this time, but responded quickly to rest and nitroglycerin. He had severe substernal chest pain on 04/25/2019 while feeding his dog. He took 2 sublingual nitroglycerin tablets without relief and contacted EMS. He was transported to [facility] for evaluation. He was found to have elevated troponin I levels consistent with an acute NSTEMI and was admitted for further cardiac care. The patient underwent a transthoracic echocardiogram which revealed an LVEF 55% with normal left ventricular size, wall thickness, and function. Moderate left ventricular diastolic dysfunction was noted as was mild pulmonary hypertension. Cardiac catheterization performed today revealed severe two-vessel CAD and it LV EF 55%. In particular, the patient has an 80-90% mid LAD lesion (by FFR), a 60% ostial RCA lesion, a 60-70% proximal RCA lesion, and a 99% mid RCA lesion. He has been recommended for CABG. Past Med Surg Social Fam HX - Past Medical History Medical history: coronary artery disease, diabetes, GERD, hyperlipidemia, hypertension, kidney stones, myocardial infarction, other Additional medical history: leg cramps, ED, hx of bronchitis,OA, hx of nmsc Psychiatric history: depression, PTSD - Past Surgical History Surgical History: angioplasty/stent, cataract (Right cataract excision with intraocular lens implantation), cholecystectomy, vasectomy Additional surgical history: kidney stone removed. cardiac stents x 2 - Social History Smoking Status: Former smoker Packs per day: 4PPD x 16YRS (has not smoked in the last 43 years) Smokeless Tobacco Status: No Alcohol use: none Drug use: none Occupational status: retired Current living situation: Home - Independent Activity Level: Independent ambulation, Very active Recent Out of Country Travel Within the Last 8 Weeks: No Exposure or Possible Exposure to Illness During Travel: No - Family History Mother Age: 38 Living Status: Sister Hx Family Neurologic Disorders: Yes (CVA) Brother Hx Family Endocrine Disorder: Yes (DM) Medications and Allergies Aspirin 81 mg PO DAILY 01/23/17 [History] Atorvastatin [Lipitor] 20 mg PO HS 01/23/17 [History] Cholecalciferol (D-3) [Vitamin D] 2,000 unit PO DAILY 01/23/17 [History] Clopidogrel [Plavix] 75 mg PO DAILY 01/23/17 [History] Furosemide [Lasix] 20 mg PO DAILY 01/23/17 [History] Insulin Glargine [Lantus] 18 unit SQ HS PRN 01/23/17 [History] Losartan [Cozaar] 25 mg PO TID 01/23/17 [History] Nitroglycerin [Nitrostat] 0.4 mg SL Q5M PRN 01/23/17 [History] Pantoprazole Sodium [Protonix] 40 mg PO DAILY 01/23/17 [History] Ranolazine [Ranexa] 500 mg PO BID 01/23/17 [History] Empagliflozin [Jardiance] 10 mg PO DAILY 03/26/18 [History] amLODIPine [Norvasc] 5 mg PO DAILY 03/26/18 [History] Isosorbide MONOnitrate (24 HR) [Imdur] 60 mg PO DAILY 04/25/19 [History] Metformin HCl [Metformin HCl ER] 1,000 mg PO BID 04/26/19 [History] Metoprolol XL (24 HR) Succ [Toprol XL] 12.5 mg PO DAILY 04/26/19 [History] Allergy/AdvReac Type Severity Reaction Status Date / Time tramadol [From Ultram] AdvReac See Verified 04/26/19 17:27 Comments All Systems Review: The remainder of the systems were reviewed and are negative Physical Examination Vital Signs, Last 4 Hours Temp Pulse Resp BP Pulse Ox 04/28/19 16:30 98.1 F 43 18 120/52 98 04/28/19 15:00 98.1 F 48 18 108/63 95 04/28/19 13:55 98.1 F 52 18 133/70 98 General: Conversant, No Apparent Distress HEENT: Atraumatic, Normocephaly, Trachea midline Neck: No JVD, Normal carotid pulses Cardiac: Reg Rate and Rhythm, Normal S1 and S2, No Murmur Lungs: Normal Breath Sounds, No Wheeze, Rales, Rhonchi Neuro: Alert and responsive, No focal deficits noted, Motor nerves intact, Sensory nerves intact Vascular: Normal capillary refill Abdomen: Soft, Non-tender Skin: No rashes noted on visualized skin Musculoskeletal: No Chest Wall Tenderness Extremities: No Clubbing, No Cyanosis, No Edema, Normal Pulses Results 04/28/19 04:44 04/28/19 04:44 Lab Results, Last 24 hours 04/28/19 04/28/19 04:44 04:44 WBC 5.2 Hgb 13.8 Hct 41.2 Plt Count 183 Sodium 140 Potassium 3.9 Chloride 105 Carbon Dioxide 27 BUN 24 H Creatinine 1.03 Glucose 123 H Calcium 9.1 - Imaging Chest Xray: image reviewed (Normal cardiac size. No active pulmonary disease.) Consult Discharge Plan - Plan Referrals: Jesus Prince MD [Partnered Physician] - (Per the cardiology office they will call the patient at home with a follow up appointment) AVILA,PCP [Primary Care Provider] - 05/13/19 9:45 am
[2019-04-29 05:47] LABS: Basophils % 0.6 %; Eosinophils # 0.1 K/mcL (0.0-0.6); Eosinophils % 2.4 %; Hematocrit 39.9 % (37.5-50.1); Hemoglobin 13.3 g/dL (12.9-16.9); Immature Granulocytes % 0.2 % (0-4); Lymphocytes # 1.3 K/mcL (0.6-4.6); Lymphocytes % 24.7 %; Mean Corpuscular HGB Conc 33.3 g/dL (31.6-35.5); Mean Corpuscular Hemoglobin 31.8 pg (28.0-33.3); Mean Corpuscular Volume 95.5 fL (83.0-100.0); Mean Platelet Volume 10.6 fL (9.4-12.4); Monocytes # 0.6 K/mcL (0.0-1.3); Monocytes % 10.2 %; Neutrophils # 3.3 K/mcL (1.6-8.9); Platelet Count 180 K/mcL (140-400); Red Blood Count 4.18 M/mcL (4.19-5.50); Red Cell Distribution Width 13.7 % (11.5-14.5); Segmented Neutrophils % 61.9 %; White Blood Count 5.4 K/mcL (4.3-11.1)
[2019-04-29 06:05] LABS: BUN/Creatinine Ratio 23 (6-26); Blood Urea Nitrogen 20 mg/dL (8-23); Carbon Dioxide 25 mEq/L (23-29); Chloride 105 mEq/L (98-107); Glucose 122 mg/dL (70-105); Osmolality,Calculated 290 (280-300); Potassium 4.2 mEq/L (3.5-5.1); Sodium 138 mEq/L (136-145); eGFR For African Americans > 60 (> 60); eGFR For Non-African Americans > 60 (> 60)
--- NOTE | 2019-04-29 07:26 | Cardiothoracic Progress Note ---
Date of Encounter: 04/29/19 Time of Encounter: 07:25 - Assessment and plan (1) Non-STEMI (non-ST elevated myocardial infarction) Current Visit: Yes Status: Acute The patient is a 73-year-old type II diabetic, hypertensive man with hypercholesterolemia and known CAD. During the last 6 weeks he has experienced exertional substernal chest pain radiating to his left arm, as well as associated shortness of breath and lightheadedness. The symptoms would resolve with rest and sublingual nitroglycerin. On 04/25/2019, he had severe substernal chest pain which did not respond to nitroglycerin. He was evaluated at [facility] emergency department and found to have elevated troponin I levels consistent with an acute NSTEMI. He was admitted for further cardiac care. A transthoracic echocardiogram revealed an LVEF 55% with normal left ventricular chamber size, wall thickness, and function. Moderate left ventricular diastolic dysfunction and mild pulmonary hypertension were noted. Cardiac catheterization performed today revealed severe two-vessel CAD and an LVEF 55%. In particular, the patient has an 80-90% mid LAD lesion, a 60% ostial RCA lesion, a 60% proximal RCA lesion, and a 99% mid RCA lesion. He has been recommended for CABG. I concur with this recommendation. The STS risk calculator reveals an operative mortality risk 1%, renal failure risk 1.19%, permanent stroke risk 1.08%, deep sternal wound infection risk 0.29%, and reoperation risk 2.47%. The patient has been on chronic Plavix and this will ne ed to be stopped for 4-5 days prior to CABG. Tentatively, the patient will undergo CABG later this week by Dr. Celso Romo. The assessment and plan as outlined above was discussed with the patient and/or family members who expressed understanding and agreement. All questions were answered. - Subjective Interval history: The patient remained hemodynamically stable overnight. He had no substernal chest pain. He has no complaints. Clinical Data, last 8 Hours Output, Urine Amount 225 Output, Urine Amount 125 Weight 04/27/19 04/28/19 04/29/19 23:59 23:59 23:59 Weight 91.2 kg 92 kg 95.5 kg - Physical Examination General: Conversant, No Apparent Distress Neck: No JVD, Normal carotid pulses Cardiac: Reg Rate and Rhythm, Normal S1 and S2, No Murmur Lungs: Normal Breath Sounds, No Wheeze, Rales, Rhonchi Neuro: Alert and responsive, No focal deficits noted Vascular: Normal capillary refill Musculoskeletal: No Chest Wall Tenderness Extremities: No Clubbing, No Cyanosis, No Edema - Labs 04/29/19 05:09 04/29/19 05:09 Lab Results, Last 24 hours 04/29/19 04/29/19 05:09 05:09 WBC 5.4 Hgb 13.3 Hct 39.9 Plt Count 180 Sodium 138 Potassium 4.2 Chloride 105 Carbon Dioxide 25 BUN 20 Creatinine 0.87 Glucose 122 H Calcium 9.0 Consult Discharge Plan - Plan Referrals: Jesus Prince MD [Partnered Physician] - (Per the cardiology office they will call the patient at home with a follow up appointment) [facility] [Primary Care Provider] - 05/13/19 9:45 am
[2019-04-29] MEDS: Aspirin 81 MG TAB.CHEW PO SCH (07:32)
[2019-04-29] MEDS: Ranolazine 500 MG TAB.ER.12H PO SCH ×2 (07:32→19:39)
--- NOTE | 2019-04-29 08:13 | Internal Med Progress Note ---
Hospitalist Progress Note - Encounter Date of Encounter: 04/29/19 Time of Encounter: 08:10 - Subjective Interval History: Denies CP, palpitations, SOB, cough, N/V/D. Patiently awaiting surgery on Sunday. No bleeding/bruising while on hep gtt. - Exam Vitals: Temp Pulse Resp BP Pulse Ox 98.3 F 51 16 133/73 96 04/29/19 03:14 04/29/19 03:14 04/29/19 03:14 04/29/19 03:14 04/29/19 03:14 Exam: General: NAD, good eye contact, well appearing, elderly Thoracic: Normal breath sounds b/l, no wheezing or crackles Cardio: Normal S1 and S2, regular rate and rhythm Abdomen: Soft, nontender Extremities: Warm, well perfused. DP pulses 2+ b/l. Mild nonpitting edema b/l LE Skin: Intact. No rashes, bruises, or ulcers Neuro: Awake, fully oriented. Speech fluent - Summary of Assessment and Plan Summary of Assessment and Plan: Herman Almaguer is a 73 M w hx CAD s/p PCIx2, HTN, HLD, DM2, GERD, nephrolithiasis, dep/ptsd, who p/w angina, ECG w ST depressions, and elevated trop, concerning for NSTEMI, w [facility] showing triple vessel disease for which patient will be taken for CABG. NSTEMI: - [facility] shows triple vessel disease, no stents placed - hep gtt - home ASA, statin, BB, ARB, ranexa, imdur, nitro prn pain Triple Vessel CAD: seen on [facility] 04/28 w mLAD 80-85%, ostial RCA 60-70%, pRCA hazy 80-90% ISR, mRCA 99% - CT Surg following, plan for CABG on wednesday 05/[address] Romo - Plavix held, last dose 04/27 DM2: controlled, w CAD, use SSI while inpatient HTN: controlled, home amlodipine, losartan, metoprolol GERD: home PPI Obesity: BMI 31 PPx: hep gtt Tele: yes Activity: up ad rebecca FEN: cardiac ADA, no MIVF Lines: PIV Consults: Cardio, CTSurg Code: Full Dispo: patient requires inpatient eval and management at this time, anticipate surgery later this week Internal Medicine: Result - Labs CBC & Chem 7: 04/29/19 05:09 04/29/19 05:09 Labs: Short CBC 04/29/19 Range/Units 05:09 WBC 5.4 (4.3-11.1) K/mcL Hgb 13.3 (12.9-16.9) g/dL Hct 39.9 (37.5-50.1) % Plt Count 180 (140-400) K/mcL Neutrophils # 3.3 (1.6-8.9) K/mcL BMP 04/29/19 05:09 Sodium 138 Potassium 4.2 Chloride 105 Carbon Dioxide 25 BUN 20 Creatinine 0.87 Glucose 122 H Calcium 9.0 - ABG Interpretation ABG results: PT/INR, D-dimer PT 11.4 Seconds (9.4-12.1) 04/26/19 00:18 Consult Discharge Plan - Plan Referrals: Jesus Prince MD [Partnered Physician] - (Per the cardiology office they will call the patient at home with a follow up appointment) [facility] [Primary Care Provider] - 05/13/19 9:45 am Celso Romo MD [Partnered Physician] -
--- NOTE | 2019-04-29 08:50 | Electrocardiograph Report ---
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
[2019-04-29] MEDS: Insulin LISPRO 300 UNITS/3 ML VIAL SQ SCH ×3 (08:51→16:40)
--- NOTE | 2019-04-29 10:01 | Cardiology Progress Note ---
Date of Encounter: 04/29/19 Time of Encounter: 09:30 Assessment and Plan (1) Non-STEMI (non-ST elevated myocardial infarction) Current Visit: Yes Status: Acute Pt's symptoms consistent with unstable angina. Found to have NSTEMI. TTE 04/26/19: LVEF 55%, mild segmental LV systolic dysfunction, moderate LVDD, mild aortic sclerosis, basal inferior wall hypokinesis LHC 04/28/19: LVEF 40-45%, FFR 0.68 LAD; 20% dLMCA, 30-40% pLAD, 85% mLAD, 60-70% ostial-proximal RCA, hazy 70-80% pRCA, 99% mRCA No chest pain overnight. Labs, telemetry stable (avg HR=58, min=41 Sinus). No issues with cath site. CT surgery consulted, plan for CABG on Sunday to allow for plavix wash-out. Continue heparin gtt, asa, statin, BB, and ranexa. Cardiac rehab. No further inpt recommendations. Will coordinate outpatient follow-up. Discussed with primary team, Cardiology will sign-off. Please call with questions. Discussion w patient/family: The assessment and plan as outlined above was discussed with the patient and/or family members who expressed understanding and agreement. All questions were answered. Thank you for involving us in the care of your patient. Please call with any questions. The patient will be discussed and reviewed with Dr. Celis, changes to be made accordingly. Subjective Principal diagnosis: nonSTEMI Interval history: Seen and examined. No new CV complaints overnight. CABG scheduled for Sunday. Objective General: Conversant, No Apparent Distress HEENT: Atraumatic, Normocephaly, Mucus Membranes Moist Cardiac: Reg Rate and Rhythm, Normal S1 and S2 Lungs: Normal Breath Sounds Neuro: Alert and responsive Abdomen: Soft Skin: No rashes noted on visualized skin Musculoskeletal: No Chest Wall Tenderness Extremities: No Edema, Normal Pulses Results 04/29/19 05:09 04/29/19 05:09 Lab Results 04/29/19 04/29/19 05:09 05:09 WBC 5.4 Hgb 13.3 Hct 39.9 Plt Count 180 Sodium 138 Potassium 4.2 Chloride 105 Carbon Dioxide 25 BUN 20 Creatinine 0.87 Glucose 122 H Calcium 9.0 Active Medications Acetaminophen (Tylenol) 650 mg PO Q6HR PRN PRN Reason: Mild Pain Stop: 10/28/19 11:20 Hydrocodone Bitart/Acetaminophen (Mahomet 5-325 Mg) 1 tab PO Q4HR PRN PRN Reason: Moderate Pain Stop: 10/28/19 11:20 Aspirin (Aspirin) 81 mg PO DAILY [facility] Stop: 10/26/19 11:01 Last Admin: 04/29/19 07:32 Dose: 81 mg Documented by: Atorvastatin Calcium (Lipitor) 20 mg PO HS [facility] Stop: 10/26/19 21:01 Last Admin: 04/28/19 21:23 Dose: 20 mg Documented by: Dextrose/Water (Dextrose 50% (Syg)) 25 ml IVP AD PRN PRN Reason: Hypoglycemia Stop: 10/26/19 02:02 Glucagon (Glucagen) 1 mg IM ONCE PRN PRN Reason: Hypoglycemia Stop: 10/26/19 02:02 Glucose (Gluctose) 15 gm PO ONCE PRN PRN Reason: Hypoglycemia Stop: 10/26/19 02:02 Glucose (Gluctose) 30 gm PO ONCE PRN PRN Reason: Hypoglycemia Stop: 10/26/19 02:02 Heparin Sodium (Porcine) (Heparin) 4,000 unit IVP Q6HR PRN PRN Reason: SEE COMMENTS Stop: 10/26/19 00:07 Heparin Sodium (Porcine) (Heparin) 2,000 unit IVP Q6H PRN PRN Reason: SEE COMMENTS Stop: 10/26/19 00:07 Heparin Sodium/Dextrose (Heparin 25,000 Unit/250 Ml D5w) 25,000 unit in 250 mls @ 10.035 mls/hr IVC .Q24H [facility]; Protocol Stop: 10/26/19 00:16 Last Titration: 04/28/19 20:00 Dose: 11.06 unit/kg/hr, 10 mls/hr Documented by: Dextrose (Dextrose 5%) 1,000 mls @ 100 mls/hr IVC .Q10H PRN PRN Reason: HYPOGLYCEMIA Stop: 10/26/19 02:02 Insulin Human Lispro (Humalog) 0 units SQ TIDAC [facility]; Protocol Stop: 10/27/19 07:31 Last Admin: 04/29/19 08:51 Dose: 4 units Documented by: Metoprolol Tartrate (Lopressor) 12.5 mg PO BID [facility] Stop: 10/26/19 21:01 Last Admin: 04/29/19 07:32 Dose: Not Given Documented by: Naloxone HCl (Narcan) 0.4 mg IVP Q2MPRN PRN PRN Reason: SEE COMMENTS Stop: 10/26/19 02:01 Nitroglycerin (Nitroglycerin) 0.4 mg SL Q5MPRN PRN PRN Reason: Chest Pain Stop: 10/26/19 10:58 Omeprazole (Prilosec) 20 mg PO DAILY@0730 [facility] Stop: 10/27/19 07:31 Last Admin: 04/29/19 07:32 Dose: 20 mg Documented by: Ondansetron HCl (Zofran) 4 mg IVP Q6HR PRN; Protocol PRN Reason: Nausea And Vomiting Stop: 10/28/19 11:20 Ranolazine (Ranexa) 500 mg PO BID [facility] Stop: 10/26/19 21:01 Last Admin: 04/29/19 07:32 Dose: 500 mg Documented by: - Imaging and Cardiology Echo: report reviewed Cardiac cath: report reviewed Other Results: 12 hour tele: avg HR=58 SB. Min-41 - EKG Interpretation EKG results cardiology: personally reviewed Consult Discharge Plan - Plan Referrals: Jesus Prince MD [Partnered Physician] - (Per the cardiology office they will call the patient at home with a follow up appointment) [facility] [Primary Care Provider] - 05/13/19 9:45 am
[2019-04-29] MEDS: Heparin 25,000 UNIT/250 ML D5W 25,000 UNIT/250 ML IV.SOLN IVC SCH (11:54)
--- NOTE | 2019-04-30 07:30 | Internal Med Progress Note ---
Hospitalist Progress Note - Encounter Date of Encounter: 04/30/19 Time of Encounter: 07:30 - Subjective Interval History: Pt walking, moving, eating, sleeping, breathing all OK. Can inhale 3L on IS. Denies issues or complaints. Patiently waiting for surgery likely sunday. - Exam Vitals: Temp Pulse Resp BP Pulse Ox 97.6 F 51 16 145/92 96 04/30/19 03:52 04/30/19 03:52 04/30/19 03:52 04/30/19 03:52 04/30/19 03:52 Exam: General: NAD, good eye contact, well appearing, elderly Thoracic: Normal breath sounds b/l, no wheezing or crackles Cardio: Normal S1 and S2, regular rate and rhythm Abdomen: Soft, nontender Extremities: Warm, well perfused. DP pulses 2+ b/l. Mild nonpitting edema b/l LE Skin: Intact. No rashes, bruises, or ulcers Neuro: Awake, fully oriented. Speech fluent - Summary of Assessment and Plan Summary of Assessment and Plan: Herman Almaguer is a 73 M w hx CAD s/p PCIx2, HTN, HLD, DM2, GERD, nephrol ithiasis, dep/ptsd, who p/w angina, ECG w ST depressions, and elevated trop, concerning for NSTEMI, w [facility] showing triple vessel disease for which patient will be taken for CABG. NSTEMI: no chest pain - [facility] shows triple vessel disease, no stents placed - continue hep gtt - home ASA, statin, BB, ARB, ranexa, imdur, nitro prn pain Triple Vessel CAD: seen on [facility] 04/28 w mLAD 80-85%, ostial RCA 60-70%, pRCA hazy 80-90% ISR, mRCA 99% - CT Surg following, plan for CABG on wednesday 05/[address] Romo - Plavix held, last dose 04/27 DM2: controlled, w CAD, use SSI while inpatient HTN: controlled, home amlodipine, losartan, metoprolol GERD: home PPI Obesity: BMI 31 PPx: hep gtt Tele: yes Activity: up ad rebecca FEN: cardiac ADA, no MIVF Lines: PIV Consults: Cardio, CTSurg Code: Full Dispo: patient requires inpatient eval and management at this time, anticipate surgery later this week Internal Medicine: Result - Labs CBC & Chem 7: 04/29/19 05:09 04/29/19 05:09 - ABG Interpretation ABG results: PT/INR, D-dimer PT 11.4 Seconds (9.4-12.1) 04/26/19 00:18 Consult Discharge Plan - Plan Referrals: Jesus Prince MD [Partnered Physician] - (Per the cardiology office they will call the patient at home with a follow up appointment) [facility] [Primary Care Provider] - 05/13/19 9:45 am Celso Romo MD [Partnered Physician] -
--- NOTE | 2019-04-30 08:31 | Cardiothoracic Progress Note ---
Date of Encounter: 04/30/19 Time of Encounter: 08:30 - Assessment and plan (1) Non-STEMI (non-ST elevated myocardial infarction) Current Visit: Yes Status: Acute The patient is a 73-year-old type II diabetic, hypertensive man with hypercholesterolemia and known CAD. During the last 6 weeks he has experienced exertional substernal chest pain radiating to his left arm, as well as associated shortness of breath and lightheadedness. The symptoms would resolve with rest and sublingual nitroglycerin. On 04/25/2019, he had severe substernal chest pain which did not respond to nitroglycerin. He was evaluated at [facility] emergency department and found to have elevated troponin I levels consistent with an acute NSTEMI. He was admitted for further cardiac care. A transthoracic echocardiogram revealed an LVEF 55% with normal left ventricular chamber size, wall thickness, and function. Moderate left ventricular diastolic dysfunction and mild pulmonary hypertension were noted. Cardiac catheterization performed today revealed severe two-vessel CAD and an LVEF 55%. In particular, the patient has an 80-90% mid LAD lesion, a 60% ostial RCA lesion, a 60% proximal RCA lesion, and a 99% mid RCA lesion. He has been recommended for CABG. I concur with this recommendation. The STS risk calculator reveals an operative mortality risk 1%, renal failure risk 1.19%, permanent stroke risk 1.08%, deep sternal wound infection risk 0.29%, and reoperation risk 2.47%. The patient has been on chronic Plavix and this will ne ed to be stopped for 4-5 days prior to CABG. Tentatively, the patient will undergo CABG later this week by Dr. Celso Romo. The assessment and plan as outlined above was discussed with the patient and/or family members who expressed understanding and agreement. All questions were answered. - Subjective Interval history: The patient remained hemodynamically stable overnight. He had no substernal chest pain. He has no complaints. Vital Signs, Last 4 Hours Temp Pulse Resp BP Pulse Ox 04/30/19 07:31 97.7 F 48 16 150/80 96 Clinical Data, last 8 Hours Output, Urine Amount 300 Output, Urine Amount 325 Weight 04/28/19 04/29/19 04/30/19 23:59 23:59 23:59 Weight 92 kg 95.5 kg 90.7 kg - Physical Examination General: Conversant, No Apparent Distress Neck: No JVD, Normal carotid pulses Cardiac: Reg Rate and Rhythm, Normal S1 and S2, No Murmur Incision: No signs of infection, Dry/intact dressing Sternum: Stable Lungs: Normal Breath Sounds, No Wheeze, Rales, Rhonchi Neuro: Alert and responsive, No focal deficits noted Vascular: Normal capillary refill Extremities: No Clubbing, No Cyanosis, No Edema - Labs 04/29/19 05:09 04/29/19 05:09 Consult Discharge Plan - Plan Referrals: Jesus Prince MD [Partnered Physician] - (Per the cardiology office they will call the patient at home with a follow up appointment) [facility] [Primary Care Provider] - 05/13/19 9:45 am Celso Romo MD [Partnered Physician] -
[2019-04-30] MEDS: Insulin LISPRO 300 UNITS/3 ML VIAL SQ SCH ×3 (09:06→17:55)
[2019-04-30] MEDS: Ranolazine 500 MG TAB.ER.12H PO SCH ×2 (09:07→20:23)
[2019-04-30] MEDS: Aspirin 81 MG TAB.CHEW PO SCH (09:07)
[2019-04-30] MEDS: amLODIPine 5 MG TABLET PO SCH (09:07)
[2019-04-30] MEDS: Heparin 25,000 UNIT/250 ML D5W 25,000 UNIT/250 ML IV.SOLN IVC SCH (15:45)
--- NOTE | 2019-05-01 08:07 | Internal Med Progress Note ---
Hospitalist Progress Note - Encounter Date of Encounter: 05/01/19 Time of Encounter: 08:07 - Subjective Interval History: No issues today, reports walking around unit, eating well, and moving about to stay limber, doing IS, and is anticipating surgery early tomorrow AM. Denies CP, SOB, cough, palpitations, N/V/D, leg swelling, fever, or bleeding/bruising. - Exam Vitals: Temp Pulse Resp BP Pulse Ox 97.7 F 54 17 113/67 98 05/01/19 07:51 05/01/19 07:51 05/01/19 07:51 05/01/19 07:51 05/01/19 07:51 Exam: General: NAD, good eye contact, well appearing, elderly Thoracic: Normal breath sounds b/l, no wheezing or crackles Cardio: Normal S1 and S2, regular rate and rhythm Abdomen: Soft, nontender Extremities: Warm, well perfused. DP pulses 2+ b/l. Mild nonpitting edema b/l LE Skin: Intact. No rashes, bruises, or ulcers Neuro: Awake, fully oriented. Speech fluent - Summary of Assessment and Plan Summary of Assessment and Plan: Herman Almaguer is a 73 M w hx CAD s/p PCIx2, HTN, HLD, DM2, GERD, nephrolithiasis, dep/ptsd, who p/w angina, ECG w ST depressions, and elevated trop, concerning for NSTEMI, w [facility] showing triple vessel disease for which patient will be taken for CABG. NSTEMI: no chest pain - [facility] 04/28 shows triple vessel disease, no stents placed - continue hep gtt - home ASA, statin, BB, ARB, ranexa, imdur, nitro prn pain Triple Vessel CAD: seen on [facility] 04/28 w mLAD 80-85%, ostial RCA 60-70%, pRCA hazy 80-90% ISR, mRCA 99% - CT Surg following, plan for CABG on wednesday 05/[address] Romo - Plavix held, last dose 04/27 DM2: controlled, w CAD, use SSI while inpatient HTN: controlled, home amlodipine, losartan, metoprolol GERD: home PPI Obesity: BMI 31 PPx: hep gtt Tele: yes Activity: up ad rebecca FEN: cardiac ADA then NPO@[place], no MIVF Lines: PIV Consults: Cardio, CTSurg Code: Full Dispo: patient requires inpatient eval and management at this time, anticipate surgery tomorrow Internal Medicine: Result - Labs CBC & Chem 7: 05/01/19 08:10 05/01/19 08:10 - ABG Interpretation ABG results: PT/INR, D-dimer PT 11.4 Seconds (9.4-12.1) 04/26/19 00:18 Consult Discharge Plan - Plan Referrals: Jesus Prince MD [Partnered Physician] - (Per the cardiology office they will call the patient at home with a follow up appointment) [facility] [Primary Care Provider] - 05/13/19 9:45 am Celso Romo MD [Partnered Physician] -
[2019-05-01] MEDS: Insulin LISPRO 300 UNITS/3 ML VIAL SQ SCH ×3 (08:17→18:08)
[2019-05-01] MEDS: Aspirin 81 MG TAB.CHEW PO SCH (08:18)
[2019-05-01] MEDS: amLODIPine 5 MG TABLET PO SCH (08:18)
[2019-05-01] MEDS: Ranolazine 500 MG TAB.ER.12H PO SCH ×2 (08:18→21:30)
[2019-05-01 08:33] LABS: Hematocrit 39.6 % (37.5-50.1); Hemoglobin 13.1 g/dL (12.9-16.9); Mean Corpuscular HGB Conc 33.1 g/dL (31.6-35.5); Mean Corpuscular Hemoglobin 32.1 pg (28.0-33.3); Mean Corpuscular Volume 97.1 fL (83.0-100.0); Mean Platelet Volume 10.2 fL (9.4-12.4); Platelet Count 194 K/mcL (140-400); Red Blood Count 4.08 M/mcL (4.19-5.50); Red Cell Distribution Width 14.1 % (11.5-14.5); White Blood Count 5.1 K/mcL (4.3-11.1)
[2019-05-01 08:46] LABS: Blood Urea Nitrogen 22 mg/dL (8-23); Calcium 9.3 mg/dL (8.6-10.3); Carbon Dioxide 27 mEq/L (23-29); Chloride 105 mEq/L (98-107); Glucose 156 mg/dL (70-105); Magnesium 1.6 mg/dL (1.6-2.6); Osmolality,Calculated 291 (280-300); Potassium 4.2 mEq/L (3.5-5.1); Sodium 137 mEq/L (136-145)
[2019-05-01 09:13] LABS: BUN/Creatinine Ratio 27 (6-26); eGFR For African Americans > 60 (> 60); eGFR For Non-African Americans > 60 (> 60)
--- NOTE | 2019-05-01 09:49 | Cardiothoracic Progress Note ---
Date of Encounter: 05/01/19 Time of Encounter: 09:46 - Assessment and plan (1) CAD (coronary artery disease) Current Visit: Yes Status: Chronic We will schedule the patient for open heart surgery tomorrow. Operative consent was obtained. Risks of surgery include , infection, stroke, bleeding, myocardial infarction, clots around the heart, renal or respiratory failure, acute or chronic graft closure, phrenic nerve injury and sternal dehiscence. The procedure, its risks, benefits and alternatives were explained and he does wish to proceed. He has no questions. Qualifiers: Coronary Disease-Associated Artery/Lesion type: [place] artery [place] vs. transplanted heart: [place] heart Associated angina: with unstable angina Qualified Code(s): I25.110 - Atherosclerotic heart disease of [place] coronary artery with unstable angina pectoris - Subjective Interval history: The patient has had no chest pain, either yesterday or today. Vital Signs, Last 4 Hours Temp Pulse Resp BP Pulse Ox 05/01/19 08:24 47 05/01/19 07:51 97.7 F 54 17 113/67 98 Clinical Data, last 8 Hours Output, Urine Amount 100 Output, Urine Amount 500 Weight 04/29/19 04/30/19 05/01/19 23:59 23:59 23:59 Weight 95.5 kg 90.7 kg 91.4 kg Lungs are clear to percussion and auscultation. Heart is in a regular rate and rhythm. He is in a sinus bradycardia. - Labs 05/01/19 08:10 05/01/19 08:10 Lab Results, Last 24 hours 05/01/19 05/01/19 08:10 08:10 WBC 5.1 Hgb 13.1 Hct 39.6 Plt Count 194 Sodium 137 Potassium 4.2 Chloride 105 Carbon Dioxide 27 BUN 22 Creatinine 0.82 Glucose 156 H Calcium 9.3 Magnesium 1.6 Consult Discharge Plan - Plan Referrals: Jesus Prince MD [Partnered Physician] - (Per the cardiology office they will call the patient at home with a follow up appointment) [facility] [Primary Care Provider] - 05/13/19 9:45 am Celso Romo MD [Partnered Physician] -
[2019-05-01 10:55] LABS: Chol/HDL Ratio 2.8 (0-4.9)
[2019-05-01 10:58] LABS: Estimated Average Glucose 131 mg/dl
[2019-05-01 11:04] LABS: INR 1.1
--- NOTE | 2019-05-01 11:56 | Anesthesia Evaluation PreOp ---
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: Other (PTSD) Other Medical History: Renal (stones), Diabetes Type II, GERD Anesthesia History: No Prior Anesthetic Complications, Past Anesthesia (nolan, vasectomy, kidney stones) Alcohol Use: none Drug use: none Medications and Allergies Aspirin 81 mg PO DAILY 01/23/17 [History] Atorvastatin [Lipitor] 20 mg PO HS 01/23/17 [History] Cholecalciferol (D-3) [Vitamin D] 2,000 unit PO DAILY 01/23/17 [History] Clopidogrel [Plavix] 75 mg PO DAILY 01/23/17 [History] Furosemide [Lasix] 20 mg PO DAILY 01/23/17 [History] Insulin Glargine [Lantus] 18 unit SQ HS PRN 01/23/17 [History] Losartan [Cozaar] 25 mg PO TID 01/23/17 [History] Nitroglycerin [Nitrostat] 0.4 mg SL Q5M PRN 01/23/17 [History] Pantoprazole Sodium [Protonix] 40 mg PO DAILY 01/23/17 [History] Ranolazine [Ranexa] 500 mg PO BID 01/23/17 [History] Empagliflozin [Jardiance] 10 mg PO DAILY 03/26/18 [History] amLODIPine [Norvasc] 5 mg PO DAILY 03/26/18 [History] Isosorbide MONOnitrate (24 HR) [Imdur] 60 mg PO DAILY 04/25/19 [History] Metformin HCl [Metformin HCl ER] 1,000 mg PO BID 04/26/19 [History] Metoprolol XL (24 HR) Succ [Toprol XL] 12.5 mg PO DAILY 04/26/19 [History] Allergy/AdvReac Type Severity Reaction Status Date / Time tramadol [From Ultram] AdvReac See Verified 04/26/19 17:27 Comments - Meds/Allergy Pre-op Review Medications Reviewed: Yes Allergies Reviewed: Yes Beta Blockers on Current Med List: Yes (lopressor) If Beta Blockers taken, Date/Time (Last Dose taken): 05-01 at 2130hrs Anesthesia Results - Labs 05/02/19 00:45 05/02/19 00:45 - Imaging EKG: report reviewed (SINUS BRADYCARDIA NONSPECIFIC ST & T-WAVE ABNORMALITY) Additional studies: echo: mpressions: LVEF 55%. Normal LV chamber size, wall thickness and overall function. Mild segmental left ventricular systolic dysfunction. Moderate left ventricular diastolic dysfunction. Normal right ventricular structure and function. Mild aortic sclerosis. Mean gradient 10 mmHg. Mild pulmonary hypertension. cath: Impressions: There is severe two vessel coronary artery disease. The left ventricle EF 40-45% FFR Measurement: 0.68 LAD Recommendations: Optimal medical therapy of patient's disease. Aggressive risk factor modification. Suggest patient have Elective coronary artery bypass surgery. LV Ventriculography Ejection Method: LV Gram Ejection Fraction: 40-45% Wall Motion: BIGGS Anterobasal Mild Hypokinesis Anterolateral Mild Hypokinesis Apical: Mild Hypokinesis Inferoapical Normal Inferobasal Normal Coronary Dominance: right Lesion Findings/Interventions * Left Main Coronary Artery There is a 20% stenosis in the Distal LMCA. The lesion has a JOVON flow of 3. * Left Anterior Descending There is an 30-40% stenosis in the proximal LAD. The lesion has a JOVON flow of 3. There is a 85% stenosis in the Mid LAD. The lesion has a JOVON flow of 3. * Circumflex The Circumflex is angiographically free of significant disease. The 1st Marginal is angiographically free of significant disease. * Ramus The Ramus is angiographically free of disease. * Right Coronary Artery There is a 60-70% stenosis in the ostial-Proximal RCA. There is a hazy 70-80% stenosis in the proximal RCA - Instent restenosis. The lesion has a JOVON flow of 2. There is a 99% stenosis in the Mid RCA. The lesion has a JOVON flow of 2. Anesthesia Exam Selected Entries 05/01/19 11:47 Temperature 97.7 F Pulse Rate 40 Respiratory Rate 17 Blood Pressure 128/69 O2 Sat by Pulse Oximetry 97 Oxygen Delivery Method Room Air Weight: 91kg - HEENT Pupil (Motor): EOMI Mallampati: II Teeth: Missing, Poor dentition Oral Opening: Greater than 3 - MUSEUM EDUCATOR LOC: Oriented MUSEUM EDUCATOR Motor: Normal RUE, Normal LUE, Normal RLE, Normal LLE, Normal Face MUSEUM EDUCATOR Sensory: Normal: RUE, LUE, RLE, LLE, Face - Cardiac Rhythm: Regular Murmur: None - Pulmonary Breath Sounds: bilateral Clear Respiratory Effort: Symmetrical Anesthesia Assess/Plan ASA Score: 4 Level of consciousness: Cooperative, Oriented Anesthetic Plan: General Monitoring Plan: Standard Monitors, A-Line, PAC, POOJA Recovery Plan: ICU (agrees to GA, lines, POOJA and blood)
[2019-05-01] MEDS: Heparin 25,000 UNIT/250 ML D5W 25,000 UNIT/250 ML IV.SOLN IVC SCH (12:26)
--- NOTE | 2019-05-01 13:24 | Invasive Diagnostic Lab Proc ---
Name: Herman Almaguer Date of Study: 04/28/2019 Date: 1945 Ht: 68.9in Medical Record#: [id number] Age: 73 Wt: 202.83lb Gender: Male BSA: 2.08 Order #: [id number] BMI: 30.04 Physicians Procedure Physician: Jesus Prince MD, [facility] Referring MD: Referring MD: Staff Name Position Time In AndJj saunders RN Instrument Repairer 07:58 AM Lor Estrada RT (R) Monitor 07:58 AM Lily Avitia RT (R) Scrub 07:58 AM Isabella Roth RT (R) Scrub 07:58 AM Mike Heredia RN Monitor 10:50 AM Sandi Hampton RN Instrument Repairer 10:50 AM Lily Avitia RT (R) Scrub 10:50 AM Procedures Performed Procedure L HRT ARTERY/VENTRICLE ANGIO IV Doppler BLD Flow 1st Vessel Pre-Procedure Checklist Informed consent is complete signed and on chart. H&P is on chart. ID band is on and ID verified with patient. Patient NPO for procedure The procedure was described for the patient and questions were answered. ECG is on chart. Plan of Care Patient will tolerate the procedure without complications. Adequate level of comfort will be maintained. Hemodynamics will remain stable Patient will recover from procedure without complications. Respiratory function will be maintained. Cardiac rhythm will remain stable. Patient temperature will be maintained. Patient and/or family have verbalized understanding of the procedure. Patient Education Intravenous Access Time IV Size Location DC'd Fluid/Drip Rate Units RN 07:52 AM 20g 1 /" Patent On Arrival Lt Antecubital Allergies Gabapentin Pioglitazone Bee Venom tramadol Vital Signs Time BP (mmHg) HR (bpm) O2 Sat. RR (bpm) LOC 07:53 AM 140 / 76 46 100 % 07:57 AM / % 5 = Fully awake and oriented or at pre-proc level 07:57 AM / % 4 = Oriented but drowsy 08:12 AM / % 4 = Oriented but drowsy 08:27 AM / % 4 = Oriented but drowsy 08:58 AM / % 4 = Oriented but drowsy 09:30 AM 159 / 98 46 97 % 16 5 = Fully awake and oriented or at pre-proc level 09:48 AM 146 / 80 47 97 % 16 5 = Fully awake and oriented or at pre-proc level 10:00 AM 119 / 91 49 95 % 16 5 = Fully awake and oriented or at pre-proc level 10:16 AM 122 / 72 55 95 % 16 5 = Fully awake and oriented or at pre-proc level 10:30 AM 126 / 72 50 96 % 16 5 = Fully awake and oriented or at pre-proc level 10:42 AM / % 5 = Fully awake and oriented or at pre-proc level 08:07 AM 161 / 76 46 96 % 21 08:12 AM 151 / 76 57 97 % 22 08:18 AM 154 / 77 52 94 % 22 08:22 AM 153 / 67 50 98 % 17 08:27 AM 144 / 73 53 97 % 13 08:32 AM 150 / 76 47 96 % 16 08:37 AM 154 / 73 65 96 % 13 08:43 AM 160 / 82 54 98 % 32 08:47 AM 159 / 77 54 94 % 16 08:52 AM 166 / 80 63 100 % 36 08:58 AM 154 / 64 57 99 % 25 09:03 AM 158 / 68 46 97 % 20 09:07 AM 151 / 74 52 96 % 16 09:12 AM 166 / 78 51 97 % 13 10:46 AM 153 / 75 54 94 % 14 10:51 AM 145 / 69 46 94 % 20 10:56 AM 134 / 72 49 97 % 14 11:01 AM 146 / 69 45 99 % 20 11:06 AM 142 / 70 45 99 % 26 08:03 AM 154 / 103 50 99 % 17 Procedural Medications Time Medication Dose Units Method Given By 07:57 AM Oxygen 2 L/min nasal cannula Jj Mcdonald RN 07:57 AM Versed 2 mg Intravenous Jj Mcdonald RN 07:57 AM Fentanyl 50 mcg Intravenous Jj Mcdonald RN 08:09 AM Lidocaine 2% 0.5 ml Subcutaneous Jesus Prince MD, FACC 08:11 AM Heparin 4000 units Nitroglycerin 2000 mcg Verapamil 200 mg Intraarterial Jesus Prince MD, FACC 08:43 AM Lidocaine 2% 19 ml Subcutaneous Jesus Prince MD, FACC 09:19 AM Heparin 1000 units Intravenous Jj Mcdonald RN 10:15 AM Heparin 1000 units Intravenous Hodan iGbbs RN 10:49 AM Oxygen 2 L/min nasal cannula Sandi Hampton RN 10:49 AM Versed 2 mg Intravenous Sandi Hampton RN 10:49 AM Fentanyl 50 mcg Intravenous Sandi Hampton RN 10:54 AM Nitroglycerin 150 mcg Intracoronary Jesus Prince MD 10:55 AM Heparin 2000 units Intravenous Sandi Hampton RN 10:56 AM 90mg Adenosine in 90 ml 0.9 NS 773 ml/hr Intravenous Sandi Hampton RN 11:05 AM Ancef 1 gram Intravenous Sandi Hampton RN ASA Classification: CLASS II- Mild systemic disease (i.e. well-controlled diabetes, hypertension, asthma, cigarette smoking) Manish Score Preprocedure Postprocedure Activity 2- Moves 4 extremities sustained head lift Activity 2- Moves 4 extremities sustained head lift Circulation 2- SBP +/= 20 points of pre-anesthetic level Circulation 2- SBP +/= 20 points of pre-anesthetic level Consciousness 2- Awake and alert oriented x 3 Consciousness 2- Awake and alert oriented x 3 O2 Saturation 2- Able to maintain O2 satruation of 92% on room air O2 Saturation 2- Able to maintain O2 satruation of 92% on room air Respiratory 2- Able to deep breathe and cough well Respiratory 2- Able to deep breathe and cough well Total Score 10 Total Score 10 Contrast Agent: Isovue Diagnostic Contrast: 222 ml Total Contrast: 222 ml Fluoro Dose: 54 mGy Activated Clotting Time Time Seconds to Clot 08:27 AM 318 10:59 AM 190 Procedure Log Time Note Enter By 07:55 AM 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 Informed consent was obtained. [facility] 07:56 AM Procedure start 07:56 [facility] 07:57 AM Time: 07:57 Oxygen on at 2 L/min per nasal cannula by Jj Mcdonald RN radha 07:57 AM Time: 07:57LOC: 5 = Fully awake and oriented or at pre-proc level [facility] 07:57 AM Time: 07:57 Patient comfortable and pain free: Yes [facility] 07:57 AM Time: 07:57 Versed 2 mg Intravenous Given by Jj Mcdonald RN 07:57 AM Time: 07:57 Fentanyl 50 mcg Intravenous Given by Jj Mcdonald RN 07:58 AM Jj Mcdonald RN Position: Instrument Repairer Time in: :58 [facility] 07:58 AM Lor Estrada RT (R) Position: Monitor Time in: :58 [facility] 07:58 AM Lily Avitia RT (R) Position: Scrub Time in: 07:58 [facility] 07:58 AM Isabella Roth RT (R) Position: Scrub Time in: :58 [facility] 07:58 AM Hair removed from procedure site in holding area using clippers. Right wrist and Right groin prepped with Chloraprep by Isabella Roth RT (R), then patient was draped. Skin intact. [facility] 08:01 AM CathStat 08:01 AM Vitals capture started with the following parameters, Patient=Adult, Interval=5 min, Initial Vwlvgryh=538 mmHg, Deflation Rate=3 mmHg, Cuff placed on Right Arm 08:01 AM Recorded ECG: HR=53 Condition=Condition 1 08:03 AM ASA Class CLASS II- Mild systemic disease (i.e. well-controlled diabetes, hypertension, asthma, cigarette smoking) [facility] 08:03 AM HR=50 bpm, DJXA=527/103 mmhg, SpO2=99.0 %, Resp=17 B/min 08:07 AM HR=46 bpm, EJLZ=932/76 mmhg, SpO2=96.0 %, Resp=21 B/min 08:08 AM Pressure channel 1 zeroed. 08:09 AM Time out was performed according to hospital policy. Conscious sedation and anesthesia was achieved (see medication log with in this report above) [facility] 08:09 Time: 08:09 0.5 ml Lidocaine 2% to right radial Subcutaneous Given by Jesus Prince MD, FACC [facility] 08:11 AM Access obtained by percutaneous puncture. 5/6Fr 10cm Terumo Glidesheath sheath placed in right Radial artery. [id number] [facility] 08:11 AM 0.035 260cm Navilyst 3mmJ wire [id number] [facility] 08:11 AM Time: 08:11 Patient given 4,000 units Heparin, 2000 mcg Nitroglycerin, and 200 mg Verapamil Intraarterial by Jesus Prince MD, FACC. This is given to reduce risk of vessel spasm and thrombosis. amil 08:12 AM 5Fr [facility]IG [facility] AM Time: 07:57 Patient comfortable and pain free: Yes amilton 08:12 AM Time: 07:57LOC: 4 = Oriented but drowsy jhamilton 08:12 AM HR=57 bpm, GWMG=807/76 mmhg, SpO2=97.0 %, Resp=22 B/min 08:14 AM Pressure channel 1 zeroed. 08:14 AM Recorded Pressure: LV, HR=49, Condition=Condition 1 (Left Ventricle) LV 145/7/17 08:14 AM Catheter crossed the aortic valve and was selectively placed in the left ventricle. Pressures recorded on pullback for left heart catheterization. amil 08:15 AM Recorded Pressure: LV, Ao, HR=55, Condition=Condition 1 (Left Ventricle) LV 151/11/24, (Aorta) Ao 155/69/101 08:15 AM Bolus angiogram of left Ventricle complete: 10 ml/sec for a total of 20 mls amil 08:16 AM Recorded Pressure: Ao, HR=45, Condition=Condition 1 (Aorta) Ao 127/54/87 08:17 AM RCA angiography performed in multiple views. jhamil 08:17 AM Catheter removed amil 08:18 AM HR=52 bpm, DFMJ=736/77 mmhg, SpO2=94.0 %, Resp=22 B/min 08:18 AM Lesion found in Proximal RCA. Pre Stenosis: 70 Pre JOVON Flow: 3: Complete and Brisk Flow/Perfusion jhamilton 08:18 AM Lesion found in Mid RCA. Pre Stenosis: 99 Pre JOVON Flow: 2: Partial Flow/Perfusion (> 1 but < 3) amil 08:19 AM 5Fr FL 4 [facility] AM Recorded Pressure: Ao, HR=50, Condition=Condition 1 (Aorta) Ao 129/71/95 08:20 AM LCA angiography performed in multiple views. jhamilton 08:20 AM Inflation device was opened. jhamilton 08:21 AM Lesion found in Distal LMCA. Pre Stenosis: 20 Pre JOVON Flow: 3: Complete and Brisk Flow/Perfusion jhamilton 08:21 AM Lesion found in Mid LAD. Pre Stenosis: 40 Pre JOVON Flow: 3: Complete and Brisk Flow/Perfusion jhamil 08:22 AM HR=50 bpm, LAUG=997/67 mmhg, SpO2=98.0 %, Resp=17 B/min 08:23 AM .014 PT Graphix 182cm guide wire across target lesion- unsuccessful. reused? No amil 08:23 AM 6Fr JR 4 Runway guide catheter was used to cannulate the PCI vessel successfully. reused? No amil 08:23 AM 2.5 mm x 12 mm Emerge Monorail balloon across target lesion- unsuccessful. reused? No amilton 08:25 AM Recorded Pressure: Ao, HR=53, Condition=Condition 1 (Aorta) Ao 154/68/100 08:27 AM Recorded Pressure: Ao, HR=50, Condition=Condition 1 (Aorta) Ao 152/67/99 08:27 AM At 08:27 the ACT was 318 seconds. [facility] 08:27 AM Time: 08:12LOC: 4 = Oriented but drowsy amil 08:27 AM HR=53 bpm, ECGB=975/73 mmhg, SpO2=97.0 %, Resp=13 B/min 08:27 AM Time: 08:12 Patient comfortable and pain free: Yes amil 08:28 AM Balloon catheter removed intact. amil 08:29 AM 6Fr Guidezilla advanced amil 08:31 AM Recorded Pressure: Ao, HR=45, Condition=Condition 1 (Aorta) Ao 116/49/83 08:31 AM Re-inserted 2.5x12 Emerge balloon. amil 08:32 AM removed guidewire, guidezilla. amil 08:32 AM HR=47 bpm, XMML=475/76 mmhg, SpO2=96.0 %, Resp=16 B/min 08:33 AM Guide catheter removed intact. amil 08:33 AM 6Fr IM Runway guide catheter was used to cannulate the PCI vessel unsuccessfully. reused? No amilton 08:35 AM Guide catheter removed intact. amil 08:36 AM 6Fr RBR 3.5 Convey guide catheter was used to cannulate the PCI vessel unsuccessfully. reused? No amilton 08:36 AM 0.035 260cm Navilyst 3mmJ wire [id number] amilton 08:37 AM HR=65 bpm, YREH=404/73 mmhg, SpO2=96.0 %, Resp=13 B/min 08:40 AM Recorded Pressure: Ao, HR=51, Condition=Condition 1 (Aorta) Ao 156/71/103 08:40 AM Guide catheter removed intact. 08:40 AM Preparing for groin access at this time. :43 AM Time: 08:27 Patient comfortable and pain free: Yes :43 AM Time: 08:27LOC: 4 = Oriented but drowsy :43 AM Time: 08:43 19 ml Lidocaine 2% to right groin Subcutaneous Given by Jesus Prince MD, [facility] 08:43 AM HR=54 bpm, MARD=032/82 mmhg, SpO2=98.0 %, Resp=32 B/min 08:45 AM Access obtained by percutaneous puncture. 6Fr 10cm Terumo [place] sheath placed in right Femoral artery. [id number] 08:46 AM 0.035 145cm Navilyst 3mmJ wire [id number] 08:46 AM 6Fr JR 4 Runway guide catheter was used to cannulate the PCI vessel unsuccessfully. reused? No 08:47 AM Guide catheter removed intact. 08:47 AM HR=54 bpm, VAGT=370/77 mmhg, SpO2=94.0 %, Resp=16 B/min 08:48 AM 6Fr AR1 Runway guide catheter was used to cannulate the PCI vessel unsuccessfully. reused? No 08:49 AM Recorded Pressure: Ao, HR=60, Condition=Condition 1 (Aorta) Ao 174/82/119 08:52 AM reinserted IM guide catheter. unseccessful. 08:52 AM Guide catheter removed intact. 08:52 AM HR=63 bpm, RRPJ=765/80 mmhg, VrL8=315.0 %, Resp=36 B/min 08:53 AM 6Fr 3DRC Musella Bright-Tip guide catheter was used to cannulate the PCI vessel successfully. reused? No 08:54 AM Recorded Pressure: Ao, HR=48, Condition=Condition 1 (Aorta) Ao 163/72/105 08:55 AM reinserting PT Graphix guidewire. amil 08:56 AM reinserting guidezilla. amil 08:56 AM reinserting 2.5x12 emerge balloon.Was not able to cross the lesion. amil 08:58 AM HR=57 bpm, WYBV=464/64 mmhg, SpO2=99.0 %, Resp=25 B/min 08:58 AM Time: 08:43 Patient comfortable and pain free: Yes amil 08:58 AM Recorded Pressure: Ao, HR=60, Condition=Condition 1 (Aorta) Ao 115/68/91 09:01 AM Recorded Pressure: Ao, HR=50, Condition=Condition 1 (Aorta) Ao 119/84/102 09:01 AM Guide wire removed intact. amilton 09:01 AM Guide catheter removed intact. jhamilton 09:01 AM Balloon catheter removed intact. jhamil 09:01 AM removed Guidezilla. amil 09:02 AM Coronary Dominance: right amil 09:02 AM 6Fr KR3H Runway guide catheter was used to cannulate the PCI vessel successfully. reused? No amil 09:03 AM HR=46 bpm, HQPW=386/68 mmhg, SpO2=97.0 %, Resp=20 B/min 09:05 AM re-inserting PT Graphix. amil 09:05 AM Recorded Pressure: Ao, HR=45, Condition=Condition 1 (Aorta) Ao 156/67/99 09:06 AM re-inserting Guidezilla. 09:07 AM HR=52 bpm, YULP=287/74 mmhg, SpO2=96.0 %, Resp=16 B/min 09:08 AM Balloon re-inserted. amil 09:11 AM Balloon catheter removed intact. amil 09:11 AM Guide wire removed intact. amilton 09:11 AM removed Guidezilla jhamilton 09:12 AM Guide catheter removed intact. jhamil 09:12 AM Emergent case incoming. Preparing to move patiento holding room at this time. amil 09:12 AM HR=51 bpm, VKRP=720/78 mmhg, SpO2=97.0 %, Resp=13 B/min 09:13 AM Time: 08:58LOC: 4 = Oriented but drowsy amil 09:13 AM Time: 08:58 Patient comfortable and pain free: Yes amil 09:14 AM report given to Юлия in the holding room. Patient to go to room 4. [email or web address] 09:17 AM Vitals capture stopped. 09:20 AM Time: 09:19 Heparin 1000 units Intravenous Given by Jj Mcdonald RN radha 09:28 AM Patient in to HR 4. Will monitor closely. Right wrist and groin sheath intact. Patient voided 100cc per urinal mprater 10:15 AM Time: 10:15 Heparin 1000 units Intravenous Given by Hodan Gibbs RN Saravia pump [email or web address] 10:35 AM Patient returned to lathe puller. Patient voided 100cc mprater 10:41 AM Vitals capture started with the following parameters, Patient=Adult, Interval=5 min, Initial Svowmdtz=011 mmHg, Deflation Rate=3 mmHg, Cuff placed on Right Arm 10:41 AM Meet and greet completed cedwards 10:41 AM Sign in performed according to hospital policy. Informed consent was obtained. cedwards 10:42 AM Time: 10:42 Patient comfortable and pain free: Yes cedwards 10:42 AM Time: 10:42LOC: 5 = Fully awake and oriented or at pre-proc level cedwards 10:44 AM Vitals capture stopped. 10:45 AM Vitals capture started with the following parameters, Patient=Adult, Interval=5 min, Initial Pvtqumvi=127 mmHg, Deflation Rate=3 mmHg, Cuff placed on Right Arm 10:46 AM HR=54 bpm, IOZT=287/75 mmhg, SpO2=94.0 %, Resp=14 B/min 10:46 AM Chloraprep used on sheath and sheath site in right groin, sheath exchanged out for new 6Fr Terumo Sheath cedwards 10:46 AM Pressure channel 1 zeroed. 10:47 AM 6Fr CLS 3.5 Runway guide catheter was used to cannulate the PCI vessel successfully. reused? No cedwards 10:47 AM .014 PT Graphix 182cm guide wire across target lesion- successful. reused? No cedwards 10:49 AM Time: 10:49 Oxygen on at 2 L/min per nasal cannula by Sandi Hampton RN cedwards 10:49 AM Time: 10:49 Versed 2 mg Intravenous Given by Sandi Hampton RN cedwards 10:49 AM Time: 10:49 Fentanyl 50 mcg Intravenous Given by Sandi Hampton RN cedwards 10:50 AM Heredia, Mike RN Position: Monitor Time in: 10:50 cedwards 10:50 AM Sandi Hampton RN Position: Instrument Repairer Time in: 10:50 cedwards 10:50 AM Lily Avitia (R) Position: Scrub Time in: 10:50 cedwards 10:51 AM HR=46 bpm, VNCX=275/69 mmhg, SpO2=94.0 %, Resp=20 B/min 10:51 AM [ Start FFR sample ] 10:52 AM Pressure channel 4 zeroed. 10:54 AM Time: 10:54 Nitroglycerin 150 mcg Intracoronary Given by Jesus Prince MD cedwards 10:55 AM Pressure channel 4 equalized to channel 1. 10:55 AM Time: 10:55 Heparin 2000 units Intravenous Given by Sandi Hampton RN cedwards 10:56 AM HR=49 bpm, AMTW=277/72 mmhg, SpO2=97 %, Resp=14 B/min 10:56 AM Asist FFR Catheter advanced to target lesion. cedwards 10:56 AM Time: 10:56 90mg Adenosine in 90 ml 0.9 NS 773 ml/hr Intravenous Given by Sandi Hampton RN Saravia pump cedwards 10:56 AM FFR: Value=0.68, Condition=Condition 1, Device=VOLCANO PRIME WIRE 10:56 AM Recorded Pressure: Ao, Wire, FFR=0.68, HR=65, Condition=Condition 1 (Aorta) Ao 109/55/78, (FFR Wire) Wire 103/26/52 10:57 AM FFR Measurement: 0.68 cedwards 10:57 AM Adenosine stopped. cedwards 10:58 AM Recorded Pressure: Ao, HR=56, Condition=Condition 1 (Aorta) Ao 91/36/56 10:58 AM Flow Wire/Catheter removed intact cedwards 10:58 AM Guide catheter removed intact. cedwards 10:59 AM At 10:59 the ACT was 190 seconds. cedwards 11:00 AM Procedure completed at 11:00 04/28/2019 cedwards 11:00 AM Did you address JOVON flow and Dominance? YesCoronary Dominance: right cedwards 11:01 AM HR=45 bpm, CLUB=017/69 mmhg, SpO2=99.0 %, Resp=20 B/min 11:01 AM Time: 11:05 Ancef 1 gram Intravenous Given by Sandi Hampton RN cedwards 11:02 AM Sign out completed: Radiation Dose 524.88 mGy, 54.2 Gy/cm2 Fluoro Time: 24.4 Isovue 370 - 200ml contrast 222 ml given by Jesus Prince MD, [facility]. Complications: None. 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 Sedation minutes 185. Cardiac Rehab Consult needed: Yes. Confirmed administered medications: Yes cedwards 11:02 AM Isovue 370 - 200ml,3 Bottle(s) used. cedwards 11:02 AM Arterial sheath pulled, Mynx closure device used and was Successful [id number] S/N. cedwards 11:03 AM Arterial sheath pulled, Vasc Band closure device used and was Successful S/N. cedwards 11:03 AM 9 ml air in Vasc Band. cedwards 11:03 AM Estimated Blood Loss: minimal cedwards 11:03 AM Post ECG NSR cedwards 11:03 AM Post Blood Pressure 146/69 cedwards 11:03 AM Information taught Cardiac Cath, IVUS/Flowire, Mynx, and Vasc Band cedwards 11:04 AM Education needs Procedure, Plan of Care, and Disease Process cedwards 11:04 AM Learning barriers :None cedwards 11:04 AM Education Methods Verbal cedwards 11:04 AM Education evaluation Able to repeat information cedwards 11:04 AM Site status No bleeding/ No Hematoma - Rt Groin/ right wrist as reported by Lily Avitia RT (R) at 11:04 cedwards 11:04 AM Plavix, Effient or Brilinta given No cedwards 11:[address] Sun paged for CABG consult. Page returned. Dr. Sun aware cedwards 11:04 AM Family placed in consult room. cedwards 11:04 AM Complications: None cedwards 11:06 AM HR=45 bpm, YLOG=952/70 mmhg, SpO2=99 %, Resp=26 B/min 11:07 AM Lesion found in Proximal LAD. Pre Stenosis: 85 Pre JOVON Flow: 3: Complete and Brisk Flow/Perfusion cedwards 11:15 AM Report given to Heather BOX Pt taken to 2N Room #7. 11:15 cedwards 11:25 AM Patient out of room: 11:25 [email or web address] Complications Complication None None Hemodynamics Pressures Site Systolic/A Wave Diastolic/V Wave Mean LV 145 7 17 LV 151 11 24 AO 155 69 101 AO 127 54 87 AO 129 71 95 AO 154 68 100 AO 152 67 99 AO 116 49 83 AO 156 71 103 AO 174 82 119 AO 163 72 105 AO 115 68 91 AO 119 84 102 AO 156 67 99 AO 109 55 78 Wire 103 26 52 AO 91 36 56 Post Procedure Information Blood Pressure: 146/69 mmHg Rhythm: NSR Post procedural instructions were given Surgery consult for CABG Closure Device Time Device Success/Fail 04/28/2019 11:17:00 AM MynxGrip Successful 04/28/2019 11:17:00 AM Mechanical Compression Successful Site Checks Time Location Status Staff Sheath In? Note 09:30 AM Rt Wrist No bleeding/ No Hematoma Юлия Mancera RN Yes 09:30 AM Rt Groin No bleeding/ No Hematoma Юлия Mancera RN Yes 09:48 AM Rt Wrist No bleeding/ No Hematoma Юлия Mancera RN Yes 09:48 AM Rt Groin No bleeding/ No Hematoma Юлия Mancera RN Yes 10:00 AM Rt Groin, Rt wrist No bleeding/ No Hematoma Юлия Mancera RN 10:16 AM Rt Groin, Rt Wrist No bleeding/ No Hematoma Hodan Gibbs RN 10:30 AM Rt Groin No bleeding/ No Hematoma Юлия Mancera RN Yes 10:30 AM Rt Wrist No bleeding/ No Hematoma Юлия Mancera RN Yes 11:04 AM Rt Groin/ right wrist No bleeding/ No Hematoma Lily Avitia RT (R) Pulses Time Site Pre-Procedure Post-Procedure Note 04/28/2019 7:52:00 AM Bilateral radial 2+ 04/28/2019 7:52:00 AM Bilateral DP & PT 2+ Updated by Anisha Núñez RN on 05/01/2019 1:18:07 PM Anisha Núñez RN electronically signed on 05/01/2019 1:18:50 PM with status of Final
[2019-05-01] MEDS: Chlorhexidine Rinse 15 ML MOUTHWASH MM SCH (21:30)
[2019-05-02 01:26] LABS: Hematocrit 36.4 % (37.5-50.1); Mean Corpuscular Volume 97.1 fL (83.0-100.0); Mean Platelet Volume 10.5 fL (9.4-12.4); Platelet Count 180 K/mcL (140-400); Red Blood Count 3.75 M/mcL (4.19-5.50); White Blood Count 6.2 K/mcL (4.3-11.1)
[2019-05-02 01:34] LABS: BUN/Creatinine Ratio 24 (6-26); Blood Urea Nitrogen 22 mg/dL (8-23); Carbon Dioxide 23 mEq/L (23-29); Chloride 108 mEq/L (98-107); Glucose 131 mg/dL (70-105); Magnesium 1.6 mg/dL (1.6-2.6); Osmolality,Calculated 293 (280-300); Potassium 3.9 mEq/L (3.5-5.1); Sodium 139 mEq/L (136-145); eGFR For African Americans > 60 (> 60); eGFR For Non-African Americans > 60 (> 60)
[2019-05-02] MEDS: Chlorhexidine Rinse 15 ML MOUTHWASH MM SCH ×2 (05:04→22:00)
[2019-05-02] MEDS ORDERED: CeFAZolin Syr 2,000MG/20 ML 2,000 MG/20 ML SYRINGE IVPB ONE (06:00)
[2019-05-02] MEDS ORDERED: Nitroglycerin 25 MG/250 ML INFUS..BTL IVC ONE ×2 (06:30→10:33)
[2019-05-02] MEDS ORDERED: NiCARdipine 2.5 MG/10 ML Syringe IVPB ONE ×2 (06:30→09:29)
[2019-05-02] MEDS ORDERED: *HR* PHENYLEPHRINE 1,000 MCG/10 ML SYRINGE IVP ONE (06:42)
[2019-05-02] MEDS ORDERED: *HR* Rocuronium Bromide 50 MG/5 ML VIAL ONE (06:42)
[2019-05-02] MEDS ORDERED: *HR* Etomidate 20 MG/10 ML AMPUL IVP ONE (06:42)
[2019-05-02] MEDS ORDERED: Famotidine 20 MG/2 ML VIAL ONE (06:42)
[2019-05-02] MEDS ORDERED: Tranexamic Acid 1,000 MG/10 ML VIAL ONE ×2 (06:43→08:55)
[2019-05-02] MEDS ORDERED: Calcium Gluconate 1,000 MG/10 ML VIAL ONE (06:43)
[2019-05-02] MEDS ORDERED: Protamine Sulfate 250 MG/25 ML VIAL IVP ONE (06:43)
[2019-05-02] MEDS ORDERED: *HR* FentaNYL (PF) 1,000 MCG/20 ML VIAL ONE (06:47)
[2019-05-02] MEDS ORDERED: *HR* Midazolam HCl 5 MG/5 ML VIAL IVP ONE (06:47)
[2019-05-02] MEDS ORDERED: Verapamil 5 MG/2 ML VIAL ONE (06:57)
[2019-05-02] MEDS ORDERED: Dextrose 50 % in Water (Vial) 30 ML, Sodium Bicarbonate 20 MEQ, Lidocaine 1% 5 ML, Insu... TH ONE ×3 (07:45)
[2019-05-02] MEDS ORDERED: Norepinephrine 4 MG in 0.9 % Sodium Chloride 250 ML IVC PRN (07:45)
[2019-05-02] MEDS ORDERED: Dextrose 50 % in Water (Vial) 30 ML, Sodium Bicarbonate 20 MEQ, Potassium Chloride 15 M... TH ONE (07:45)
[2019-05-02] MEDS ORDERED: Heparin 15,000 UNIT in 0.9 % Sodium Chloride 500 ML IV ONE (07:45)
[2019-05-02] MEDS ORDERED: Insulin Human Regular 100 UNIT in 0.9 % Sodium Chloride 100 ML IV PRN (07:45)
[2019-05-02 07:53] LABS: ABG Base Excess -1 mEq/L (-2 to 3); ABG Chloride 107 mEq/L (98-107); ABG Glucose 163 mg/dL (60-95); ABG HCO3 25 mEq/L (21-27); ABG Ionized Calcium 1.23 mmol/L (1.15-1.35); ABG Oxygen Saturation 99 % (95-98); ABG PCO2 45 mmHg (35-45); ABG PH 7.36 pH Units (7.32-7.45); ABG PO2 138 mmHg (85-104); ABG TCO2 26 mEq/L (20-26)
--- NOTE | 2019-05-02 08:37 | Anesthesia Procedures ---
Date of Encounter: 05/02/19 Time of Encounter: 07:45 Procedures: Anesthesia - Arterial Line Consent obtained: written consent Time out performed: Yes Sedation: Versed (mg): 2 Sedation: Fentanyl (mcg): 100 Supplemental Oxygen via Nasal Cannula (L/min): 4 Size (Gauge): 20 Length (inches): 5 Technique Used: sterile prep, guide wire technique, direct puncture technique Post-Procedure: line taped into place, dry sterile dressing placed Patient tolerated procedure: well, no complications Complications: none Site: Radial L - Central Line Placement Right IJ Consent obtained: written consent Time out performed: Yes Patient placed on monitor/pulse ox: Yes MD prep: mask, gown, gloves Central line prep: Chlorhexidine scrub, sterile drapes applied Ultrasound used for placement: Yes Technique: Seldinger Lumen Inserted: Introducer Size / Length: 9 Fr / 10 cm Post procedure: sutured in place, good blood return, all ports aspirated, flushed, capped, sterile dressing applied Patient tolerated procedure: well Complications: none Comments: introducer placed easily, swan placed without arrythmias, wedge approx 55cm
[2019-05-02 08:57] LABS: ABG Base Excess -3 mEq/L (-2 to 3); ABG Chloride 108 mEq/L (98-107); ABG Glucose 208 mg/dL (60-95); ABG HCO3 22 mEq/L (21-27); ABG Ionized Calcium 1.17 mmol/L (1.15-1.35); ABG Oxygen Saturation 98 % (95-98); ABG PCO2 36 mmHg (35-45); ABG PH 7.39 pH Units (7.32-7.45); ABG PO2 100 mmHg (85-104); ABG TCO2 23 mEq/L (20-26)
[2019-05-02 09:32] LABS: ABG Base Excess 0 mEq/L (-2 to 3); ABG Chloride 103 mEq/L (98-107); ABG Glucose 285 mg/dL (60-95); ABG HCO3 23 mEq/L (21-27); ABG Ionized Calcium 1.03 mmol/L (1.15-1.35); ABG PCO2 33 mmHg (35-45); ABG PH 7.46 pH Units (7.32-7.45); ABG PO2 > 630 mmHg (85-104); ABG TCO2 25 mEq/L (20-26)
--- NOTE | 2019-05-02 09:47 | Event Note ---
Date of Encounter: 05/02/19 Time of Encounter: 07:30 Receive a signout from the previous provider regarding his hospital course. Patient was already sent to the OR for CABG this morning and will be managed by CTS post-operatively. Will sign off.
[2019-05-02 10:09] LABS: ABG Base Excess -1 mEq/L (-2 to 3); ABG Chloride 105 mEq/L (98-107); ABG Glucose 201 mg/dL (60-95); ABG HCO3 24 mEq/L (21-27); ABG Ionized Calcium 1.12 mmol/L (1.15-1.35); ABG Oxygen Saturation 100 % (95-98); ABG PCO2 40 mmHg (35-45); ABG PH 7.39 pH Units (7.32-7.45); ABG PO2 582 mmHg (85-104); ABG TCO2 25 mEq/L (20-26)
[2019-05-02 10:31] LABS: ABG Base Excess -1 mEq/L (-2 to 3); ABG Chloride 105 mEq/L (98-107); ABG Glucose 154 mg/dL (60-95); ABG HCO3 23 mEq/L (21-27); ABG Ionized Calcium 1.44 mmol/L (1.15-1.35); ABG Oxygen Saturation 99 % (95-98); ABG PCO2 37 mmHg (35-45); ABG PH 7.41 pH Units (7.32-7.45); ABG PO2 127 mmHg (85-104); ABG TCO2 25 mEq/L (20-26)
[2019-05-02] MEDS ORDERED: Albumin Human 5% 50.0 GM/1,000 ML VIAL ONE (10:34)
[2019-05-02] MEDS ORDERED: *HR* Dextrose 50 % in Water (Syg) 50 ML SYRINGE IVP PRN (11:02)
[2019-05-02] MEDS ORDERED: Potassium Chloride 40 MEQ/200 ML BAG IVPB PRN (11:02)
[2019-05-02] MEDS ORDERED: Insulin Regular, Human 100 UNIT/ML IV PRN (11:02)
[2019-05-02] MEDS ORDERED: *HR* Promethazine 25 MG/ML VIAL IVP PRN (11:02)
[2019-05-02] MEDS: Nitroglycerin 25 MG/250 ML INFUS..BTL IVC SCH ×2 (11:14→18:59)
[2019-05-02] MEDS ORDERED: Insulin Human Regular 100 UNIT in 0.9 % Sodium Chloride 100 ML IVC SCH (11:15)
[2019-05-02] MEDS ORDERED: Norepinephrine 4 MG in 0.9 % Sodium Chloride 250 ML IVC SCH (11:15)
[2019-05-02 11:44] LABS: ABG Base Excess 0 mEq/L (-2 to 3); ABG HCO3 26 mEq/L (21-27); ABG Oxygen Saturation 95 % (95-98); ABG PCO2 44 mmHg (35-45); ABG PH 7.38 pH Units (7.32-7.45); ABG PO2 77 mmHg (85-104); ABG TCO2 27 mEq/L (20-26); Blood Gas Modality VC; Blood Gas PEEP 5 cm H2O; Blood Gas VT 600 cc
[2019-05-02] MEDS: niCARdipine 20 MG/200 ML MLS IVC SCH ×2 (11:48→16:27)
[2019-05-02] MEDS: amLODIPine 5 MG TABLET PO SCH (11:51)
[2019-05-02] MEDS: Aspirin 81 MG TAB.CHEW PO SCH (11:51)
[2019-05-02] MEDS: Ranolazine 500 MG TAB.ER.12H PO SCH ×2 (11:51→22:00)
[2019-05-02 11:56] LABS: Basophils % 0.4 %; Eosinophils # 0.1 K/mcL (0.0-0.6); Eosinophils % 1.5 %; Hematocrit 30.1 % (37.5-50.1); Hemoglobin 10.2 g/dL (12.9-16.9); Immature Granulocytes % 0.7 % (0-4); Immature Platelets 2.4 % (1.1-6.1); Lymphocytes # 0.8 K/mcL (0.6-4.6); Lymphocytes % 15.2 %; Mean Corpuscular HGB Conc 33.9 g/dL (31.6-35.5); Mean Corpuscular Hemoglobin 31.9 pg (28.0-33.3); Mean Corpuscular Volume 94.1 fL (83.0-100.0); Mean Platelet Volume 10.1 fL (9.4-12.4); Monocytes # 0.1 K/mcL (0.0-1.3); Neutrophils # 4.3 K/mcL (1.6-8.9); Platelet Count 101 K/mcL (140-400); Red Cell Distribution Width 13.8 % (11.5-14.5); Segmented Neutrophils % 80.2 %
--- NOTE | 2019-05-02 11:58 | Operative Note ---
Date of procedure: 05/02/19 Pre-op diagnosis: Coronary artery disease Post-op diagnosis: same Procedure: Coronary artery bypass grafting 2 with the left internal mammary artery to the LAD and a saphenous vein graft to the posterolateral branch of the right coronary artery. Complications: None Anesthesia: GETA Surgeon: Celso Romo Was there an plant attendant or assistant operator present: Yes Orthopedic Physician: Edson Chin Estimated blood loss (cc): 500 Specimen: none Condition: stable Disposition: ICU Procedure in Detail: The patient is a 73-year-old gentleman who presented with coronary artery disease. He was brought to the operating room today where he did have some Pre- Op chest pain. He was started on a nitroglycerin drip. He was prepped and draped in standard fashion. The right greater saphenous vein was harvested from the right knee to the right groin through 2 small incisions using a scope. Standard median sternotomy was performed. The left internal mammary artery was harvested in standard fashion using the Bovie electrocoagulation. The standard sternal grain and yeast plants supervisor was inserted. Pericardium was opened in the midline and suspended with 2-0 silk stay sutures. A double pursestring of 200 [place] was placed in the aorta for the aortic cannulation site. A pursestring of 20 [place] was placed in the right atrial appendage for the venous uptake. The patient was heparinized. The aorta was cannulated without difficulty. 2 stage venous uptake cannula was inserted through the right atrial appendage. A pursestring of 3-0 silk was placed in the aorta and the cardioplegia needle was inserted through here. This was also used is an active and passive aortic vent. The patient was placed on cardiopulmonary bypass and cooled. At this point the aorta was crossclamped and a liter of antegrade cardioplegia was given. Topical cooling with ice saline slush was also used. Attention was turned to the right. The posterior descending branch was too small and diffusely diseased for grafting. The main right coronary artery was diffusely diseased. We dissected free the posterolateral branch with a [place] blade and opened it with a [place] blade and a Landa scissors. He had a lumen of 1-1/2 mm and was relatively free of disease. A standard end-to-side anastomosis was constructed using the saphenous vein and a 7-0 Prolene. When this was completed, the patient received her last dose of antegrade cardioplegia. The LAD was dissected free with the [place] blade and opened with a [place] blade and the Landa scissors. This had a lumen of 1-1/2 mm and was relatively free of disease. A standard end-to-side anastomosis was constructed using the mammary artery and a 7-0 Prolene. The pedicle was tacked to the surface of the heart using 2 interrupted 5-0 silk sutures. Cross-clamp was removed and rewarming was begun. A side-biting clamp was placed on the aorta and the cardioplegia needle was removed. A hole was made in the aorta using the [place] blade and a 4.4 mm aortic punch. He standard proximal anastomosis was constructed using the saphenous vein and a 5-0 Prolene. When this is completed, the side-biting clamp was removed. The graft was de- aired with a #25-gauge needle and the previously placed bulldog clamp was removed. Distal anastomoses were inspected and found to be hemostatic. The proximal anastomosis was marked with a marker from [employer]. We did place some hemoblast and fibrillar around the proximal anastomosis. A pair of atrial and ventricular pacing wires was left. A total of 3 chest tubes were left. A 32 right angle chest tube to the left pleural space. A 32 angle chest tube to the pericardial well. A 42 mediastinal chest tube. The patient was weaned from bypass and given protamine. Hemostasis was good and the hemodynamics were good. Pericardium was loosely closed using interrupted 2-0 silk sutures. We did use platelet rich and platelet poor plasma to the sternum and tissues above the sternum. Sternum was closed with #7 sternal wires in simple and [id number] fashion. Fascia was run with #1 Vicryl. Subcutaneous tissues with a 2-0 Vicryl. Skin was closed with a 3-0 Vicryl subcuticular stitch. The patient tolerated the procedure well and was returned to intensive care unit in satisfactory and stable condition. Total bypass time 60 minutes. Total cross- clamp time 33 minutes. He been cooled to 35.1 degrees.
[2019-05-02 12:07] LABS: INR 1.3; Prothrombin Time 14.3 Seconds (9.4-12.1)
[2019-05-02 12:09] LABS: BUN/Creatinine Ratio 26 (6-26); Blood Urea Nitrogen 20 mg/dL (8-23); Calcium 9.1 mg/dL (8.6-10.3); Carbon Dioxide 26 mEq/L (23-29); Chloride 107 mEq/L (98-107); Glucose 83 mg/dL (70-105); Magnesium 2.1 mg/dL (1.6-2.6); Osmolality,Calculated 288 (280-300); Potassium 3.6 mEq/L (3.5-5.1); Sodium 138 mEq/L (136-145); eGFR For African Americans > 60 (> 60); eGFR For Non-African Americans > 60 (> 60)
[2019-05-02] MEDS: 0.9 % Sodium Chloride 1,000 ML IVC SCH (12:11)
[2019-05-02 12:15] LABS: White Blood Count 5.4 K/mcL (4.3-11.1)
[2019-05-02] MEDS ORDERED: *HR* Heparin 10,000 UNIT/10 ML VIAL IV ONE (13:58)
[2019-05-02] MEDS ORDERED: Albumin Human 25% 25 GM/100 ML IV.SOLN IV ONE (13:58)
[2019-05-02] MEDS ORDERED: Heparin 1,000 UNITS/500 mL IV.SOLN IVC ONE (13:58)
[2019-05-02] MEDS ORDERED: Lidocaine 2% Syringe 100 MG/5 ML IV ONE (13:58)
[2019-05-02] MEDS ORDERED: *HR* Phenylephrine 10 MG/ML VIAL IVC ONE (13:58)
[2019-05-02] MEDS ORDERED: D5% in Water 250 ML IV BAG IV ONE (13:58)
[2019-05-02] MEDS ORDERED: Mannitol 25% vial 12.5 GM/50 ML VIAL IVP ONE (13:58)
[2019-05-02] MEDS ORDERED: Tranexamic Acid 1,000 MG/10 ML VIAL IVPB ONE (13:58)
[2019-05-02] MEDS ORDERED: *HR* Magnesium Sulfate 2 GM/50 ML PIGGYBACK IVPB ONE (13:58)
[2019-05-02] MEDS: *HR* FentaNYL (PF) 100 MCG/2 ML VIAL IVP PRN ×3 (14:16→19:56)
[2019-05-02] MEDS: *HR* OxyCODONE/APAP 5/325 TABLET PO PRN ×2 (14:31→19:45)
--- NOTE | 2019-05-02 15:00 | Electrocardiograph Report ---
[address] [address] Test Date: 2019-05-02 Pat Name: Herman Almaguer Department: 109 Room: [facility] Gender: M Dive Superintendent: : 1945 Requested By: Celso Romo Order Number: [id number] Reading MD: Edis Beaver Measurements Intervals [place] Rate: 79 P: 96 IN: 218 QRS: 68 QRSD: 135 T: -52 QT: 458 QTc: 493 Interpretive Statements ELECTRONIC ATRIAL PACEMAKER RIGHT BUNDLE BRANCH BLOCK MODERATE T-WAVE ABNORMALITY, CONSIDER INFERIOR ISCHEMIA Electronically Signed On 05-02-2019 14:58:23 EDT by Edis Beaver
[2019-05-02 15:22] LABS: ABG Base Excess -1 mEq/L (-2 to 3); ABG HCO3 24 mEq/L (21-27); ABG Oxygen Saturation 94 % (95-98); ABG PCO2 42 mmHg (35-45); ABG PH 7.37 pH Units (7.32-7.45); ABG PO2 75 mmHg (85-104); ABG TCO2 26 mEq/L (20-26); Blood Gas Modality CPAP/PS; Blood Gas PEEP 5 cm H2O; Blood Gas Pressure Support 5 cm H2O
[2019-05-02 16:24] LABS: ABG Base Excess -1 mEq/L (-2 to 3); ABG HCO3 24 mEq/L (21-27); ABG Oxygen Saturation 92 % (95-98); ABG PCO2 41 mmHg (35-45); ABG PH 7.38 pH Units (7.32-7.45); ABG PO2 63 mmHg (85-104); ABG TCO2 25 mEq/L (20-26)
[2019-05-02 16:41] LABS: Hematocrit 32.4 % (37.5-50.1); Hemoglobin 10.9 g/dL (12.9-16.9)
[2019-05-03] MEDS: *HR* FentaNYL (PF) 100 MCG/2 ML VIAL IVP PRN (01:15)
[2019-05-03] MEDS: *HR* OxyCODONE/APAP 5/325 TABLET PO PRN ×3 (04:09→18:41)
[2019-05-03] MEDS: 0.9 % Sodium Chloride 1,000 ML IVC SCH (04:09)
[2019-05-03 04:35] LABS: Basophils % 0.4 %; Hemoglobin 11.3 g/dL (12.9-16.9); Immature Granulocytes % 0.4 % (0-4); Lymphocytes % 12.2 %; Mean Corpuscular HGB Conc 33.2 g/dL (31.6-35.5); Mean Corpuscular Hemoglobin 32.1 pg (28.0-33.3); Mean Corpuscular Volume 96.6 fL (83.0-100.0); Mean Platelet Volume 10.2 fL (9.4-12.4); Monocytes # 0.8 K/mcL (0.0-1.3); Monocytes % 9.5 %; Neutrophils # 6.4 K/mcL (1.6-8.9); Platelet Count 142 K/mcL (140-400); Red Blood Count 3.52 M/mcL (4.19-5.50); Red Cell Distribution Width 14.3 % (11.5-14.5); Segmented Neutrophils % 77.5 %
[2019-05-03 04:37] LABS: White Blood Count 8.2 K/mcL (4.3-11.1)
[2019-05-03] MEDS: niCARdipine 20 MG/200 ML MLS IVC SCH ×2 (04:43→04:44)
[2019-05-03 05:03] LABS: BUN/Creatinine Ratio 24 (6-26); Blood Urea Nitrogen 22 mg/dL (8-23); Calcium 8.6 mg/dL (8.6-10.3); Carbon Dioxide 22 mEq/L (23-29); Chloride 108 mEq/L (98-107); Glucose 156 mg/dL (70-105); Osmolality,Calculated 289 (280-300); Potassium 4.5 mEq/L (3.5-5.1); Sodium 136 mEq/L (136-145); eGFR For African Americans > 60 (> 60); eGFR For Non-African Americans > 60 (> 60)
[2019-05-03] MEDS: Nitroglycerin 25 MG/250 ML INFUS..BTL IVC SCH (07:45)
--- NOTE | 2019-05-03 08:33 | Cardiothoracic Progress Note ---
Date of Encounter: 05/03/19 Time of Encounter: 08:30 - Assessment and plan (1) CAD (coronary artery disease) Current Visit: Yes Status: Chronic We will check a stat portable chest x-ray. We will discontinue the IV fluids, [place]-Rosario catheter, arterial line and Simons catheter. We will transfer the patient to the floor. Qualifiers: Coronary Disease-Associated Artery/Lesion type: [place] artery [place] vs. transplanted heart: [place] heart Associated angina: with unstable angina Qualified Code(s): I25.110 - Atherosclerotic heart disease of [place] coronary artery with unstable angina pectoris - Subjective Interval history: The patient has only minimal postoperative pain and has no complaints. Vital Signs, Last 4 Hours Temp Pulse Resp BP Pulse Ox 05/03/19 07:42 16 95 05/03/19 07:00 98.8 F 80 18 135/51 95 05/03/19 06:00 80 16 137/54 19 05/03/19 05:00 80 16 134/49 97 Oxgyen Flow Rate Oxygen Flow Rate (LPM) 4 Clinical Data, last 8 Hours Output, Chest Tube Drainage 0 Amount [Mediastinal #3] Output, Chest Tube Drainage 0 Amount [Mediastinal #3] Output, Chest Tube Drainage 5 Amount [Mediastinal #3] Output, Chest Tube Drainage 5 Amount [Mediastinal #3] Output, Chest Tube Drainage 25 Amount [Mediastinal #3] Output, Chest Tube Drainage 22 Amount [Mediastinal #3] Output, Chest Tube Drainage 3 Amount [Mediastinal #3] Output, Chest Tube Drainage 3 Amount [Mediastinal #2] Output, Chest Tube Drainage 0 Amount [Mediastinal #2] Output, Chest Tube Drainage 0 Amount [Mediastinal #2] Output, Chest Tube Drainage 0 Amount [Mediastinal #2] Output, Chest Tube Drainage 5 Amount [Mediastinal #2] Output, Chest Tube Drainage 10 Amount [Mediastinal #2] Output, Chest Tube Drainage 2 Amount [Mediastinal #2] Output, Chest Tube Drainage 2 Amount [Mediastinal #1] Output, Chest Tube Drainage 5 Amount [Mediastinal #1] Output, Chest Tube Drainage 0 Amount [Mediastinal #1] Output, Chest Tube Drainage 10 Amount [Mediastinal #1] Output, Chest Tube Drainage 10 Amount [Mediastinal #1] Output, Chest Tube Drainage 0 Amount [Mediastinal #1] Output, Chest Tube Drainage 5 Amount [Mediastinal #1] Weight 05/01/19 05/02/19 05/03/19 23:59 23:59 23:59 Weight 91.4 kg 90.8 kg 95.1 kg Lungs are clear to percussion and auscultation. Heart is in a normal sinus rhythm. All incisions are healing well without signs of infection and the sternum is stable. Chest tube drainage is minimal and there is no air leak. The chest tubes were removed. The pacing wires were left in place. - Labs 05/03/19 04:20 05/03/19 04:20 Lab Results, Last 24 hours 05/02/19 05/02/19 05/02/19 11:38 11:38 11:38 WBC 5.4 Hgb 10.2 L D Hct 30.1 L Plt Count 101 L INR 1.3 APTT 42.0 H Sodium 138 Potassium 3.6 Chloride 107 Carbon Dioxide 26 BUN 20 Creatinine 0.78 Glucose 83 Calcium 9.1 Magnesium 2.1 05/02/19 05/02/19 05/03/19 16:30 16:30 04:20 WBC 8.2 D Hgb 10.9 L 11.3 L Hct 32.4 L 34.0 L Plt Count 142 INR APTT Sodium Potassium 3.6 Chloride Carbon Dioxide BUN Creatinine Glucose Calcium Magnesium 05/03/19 04:20 WBC Hgb Hct Plt Count INR APTT Sodium 136 Potassium 4.5 Chloride 108 H Carbon Dioxide 22 L BUN 22 Creatinine 0.93 Glucose 156 H Calcium 8.6 Magnesium Consult Discharge Plan - Plan Referrals: Jesus Prince MD [Partnered Physician] - (Per the cardiology office they will call the patient at home with a follow up appointment) [facility] [Primary Care Provider] - 05/13/19 9:45 am Celso Romo MD [Partnered Physician] -
[2019-05-03] MEDS: Ranolazine 500 MG TAB.ER.12H PO SCH ×2 (08:39→20:42)
[2019-05-03] MEDS: Aspirin 81 MG TAB.CHEW PO SCH (08:39)
[2019-05-03] MEDS: amLODIPine 5 MG TABLET PO SCH (08:40)
[2019-05-03] MEDS: Chlorhexidine Rinse 15 ML MOUTHWASH MM SCH ×2 (08:40→20:41)
[2019-05-03] MEDS ORDERED: Pantoprazole 40 MG VIAL IVP SCH (09:00)
[2019-05-03] MEDS ORDERED: Nitroglycerin 0.4 MG TAB.SUBL SL PRN (11:26)
[2019-05-03] MEDS ORDERED: *HR* Promethazine 25 MG/ML VIAL IVP PRN (11:26)
[2019-05-03] MEDS ORDERED: Dextrose Gel 15 GM/37.5 ML TUBE PO PRN ×2 (11:26)
[2019-05-03] MEDS ORDERED: *HR* Dextrose 50 % in Water (Syg) 50 ML SYRINGE IVP PRN (11:26)
[2019-05-03] MEDS ORDERED: D5% in Water 1,000 ML IVC PRN (11:26)
[2019-05-03] MEDS ORDERED: Naloxone 0.4 MG/ML INJ IVP PRN (11:26)
[2019-05-03] MEDS ORDERED: Acetaminophen 325 MG TABLET PO PRN (11:26)
[2019-05-03] MEDS ORDERED: Ondansetron 4 MG/2 ML VIAL IVP PRN (11:26)
[2019-05-03] MEDS: Insulin LISPRO 300 UNITS/3 ML VIAL SQ SCH ×3 (12:15→20:43)
[2019-05-03] MEDS: Furosemide 20 MG TABLET PO SCH (13:31)
[2019-05-03] MEDS: *HR* Heparin 5,000 UNIT/ML VIAL SQ SCH (18:41)
[2019-05-03] MEDS: Insulin DETEMIR 100 UNIT/ML X5UNITS SQ SCH (20:43)
[2019-05-03] MEDS ORDERED: *HR* Metoprolol 5 MG/5 ML VIAL IVP ONE (23:57)
[2019-05-04] MEDS ORDERED: *HR* Metoprolol 5 MG/5 ML VIAL IVP ONE (00:03)
[2019-05-04] MEDS ORDERED: Amiodarone Premix 150 MG/100 ML BAG IVPB ONE (01:04)
[2019-05-04] MEDS ORDERED: Amiodarone Premix 360 MG/200 ML BAG IVC ONE (01:04)
[2019-05-04 04:54] LABS: Basophils % 0.3 %; Eosinophils % 0.3 %; Hematocrit 30.5 % (37.5-50.1); Immature Granulocytes % 0.4 % (0-4); Lymphocytes # 1.2 K/mcL (0.6-4.6); Lymphocytes % 16.1 %; Mean Corpuscular HGB Conc 32.8 g/dL (31.6-35.5); Mean Corpuscular Hemoglobin 31.8 pg (28.0-33.3); Mean Corpuscular Volume 97.1 fL (83.0-100.0); Mean Platelet Volume 10.7 fL (9.4-12.4); Monocytes # 0.7 K/mcL (0.0-1.3); Monocytes % 9.4 %; Neutrophils # 5.5 K/mcL (1.6-8.9); Platelet Count 113 K/mcL (140-400); Red Blood Count 3.14 M/mcL (4.19-5.50); Red Cell Distribution Width 14.4 % (11.5-14.5); Segmented Neutrophils % 73.5 %; White Blood Count 7.5 K/mcL (4.3-11.1)
[2019-05-04 05:13] LABS: BUN/Creatinine Ratio 28 (6-26); Blood Urea Nitrogen 22 mg/dL (8-23); Calcium 8.4 mg/dL (8.6-10.3); Carbon Dioxide 27 mEq/L (23-29); Chloride 107 mEq/L (98-107); Glucose 166 mg/dL (70-105); Osmolality,Calculated 281 (280-300); Potassium 3.8 mEq/L (3.5-5.1); Sodium 132 mEq/L (136-145); eGFR For African Americans > 60 (> 60); eGFR For Non-African Americans > 60 (> 60)
[2019-05-04] MEDS: *HR* Heparin 5,000 UNIT/ML VIAL SQ SCH ×2 (05:56→17:19)
[2019-05-04] MEDS: Amiodarone Premix 360 MG/200 ML BAG IVC SCH ×2 (07:28→19:06)
[2019-05-04] MEDS: Insulin LISPRO 300 UNITS/3 ML VIAL SQ SCH ×4 (07:35→20:12)
[2019-05-04] MEDS: amLODIPine 5 MG TABLET PO SCH (08:30)
[2019-05-04] MEDS: Furosemide 20 MG TABLET PO SCH (08:30)
[2019-05-04] MEDS: Chlorhexidine Rinse 15 ML MOUTHWASH MM SCH ×2 (08:30→20:11)
[2019-05-04] MEDS: Aspirin 81 MG TAB.CHEW PO SCH (08:30)
[2019-05-04] MEDS: Pantoprazole 40 MG VIAL IVP SCH (08:31)
[2019-05-04] MEDS: Ranolazine 500 MG TAB.ER.12H PO SCH ×2 (08:31→20:13)
--- NOTE | 2019-05-04 09:07 | Cardiothoracic Progress Note ---
Date of Encounter: 05/04/19 Time of Encounter: 09:05 - Assessment and plan (1) CAD (coronary artery disease) Current Visit: Yes Status: Chronic We will continue the amiodarone drip until tomorrow morning and then switch him to by mouth. I left the pacemaker on at DDD with a rate of 50 for a backup. We will leave the patient in the ICU today. Qualifiers: Coronary Disease-Associated Artery/Lesion type: [place] artery [place] vs. transplanted heart: [place] heart Associated angina: with unstable angina Qualified Code(s): I25.110 - Atherosclerotic heart disease of [place] coronary artery with unstable angina pectoris - Subjective Interval history: The patient had a 5 second cause last night and then went into atrial fibrillation. This morning, he has no complaints. Vital Signs, Last 4 Hours Temp Pulse Resp BP Pulse Ox 05/04/19 08:00 98 20 118/72 94 05/04/19 07:41 16 95 05/04/19 07:35 100.0 F H 05/04/19 07:15 99 20 110/70 94 05/04/19 06:00 101 21 112/65 93 Oxgyen Flow Rate Oxygen Flow Rate (LPM) 2 Clinical Data, last 8 Hours Output, Urine Amount 150 Weight 05/02/19 05/03/19 05/04/19 23:59 23:59 23:59 Weight 90.8 kg 95.1 kg 94.6 kg Lungs are clear to percussion and auscultation. Heart is in a normal sinus rhythm this morning on an amiodarone drip. All incisions are healing well without signs of infection and the sternum is stable. - Labs 05/04/19 04:41 05/04/19 04:41 Lab Results, Last 24 hours 05/04/19 05/04/19 04:41 04:41 WBC 7.5 Hgb 10.0 L Hct 30.5 L Plt Count 113 L Sodium 132 L Potassium 3.8 Chloride 107 Carbon Dioxide 27 BUN 22 Creatinine 0.80 Glucose 166 H Calcium 8.4 L - VTE Documentation of Mechanical Device: Graduated compression elastic hosiery Consult Discharge Plan - Plan Referrals: Jesus Prince MD [Partnered Physician] - (Per the cardiology office they will call the patient at home with a follow up appointment) [facility] [Primary Care Provider] - 05/13/19 9:45 am Celso Romo MD [Partnered Physician] -
[2019-05-04] MEDS: Insulin DETEMIR 100 UNIT/ML X5UNITS SQ SCH (20:12)
[2019-05-05 04:28] LABS: Basophils % 0.1 %; Eosinophils # 0.1 K/mcL (0.0-0.6); Eosinophils % 1.1 %; Hematocrit 29.2 % (37.5-50.1); Hemoglobin 9.6 g/dL (12.9-16.9); Immature Granulocytes % 0.4 % (0-4); Lymphocytes # 1.3 K/mcL (0.6-4.6); Lymphocytes % 17.6 %; Mean Corpuscular HGB Conc 32.9 g/dL (31.6-35.5); Mean Corpuscular Hemoglobin 32.1 pg (28.0-33.3); Mean Corpuscular Volume 97.7 fL (83.0-100.0); Monocytes # 0.8 K/mcL (0.0-1.3); Monocytes % 10.7 %; Neutrophils # 5.2 K/mcL (1.6-8.9); Platelet Count 125 K/mcL (140-400); Red Blood Count 2.99 M/mcL (4.19-5.50); Segmented Neutrophils % 70.1 %; White Blood Count 7.5 K/mcL (4.3-11.1)
[2019-05-05 04:37] LABS: BUN/Creatinine Ratio 30 (6-26); Blood Urea Nitrogen 23 mg/dL (8-23); Calcium 8.3 mg/dL (8.6-10.3); Carbon Dioxide 25 mEq/L (23-29); Chloride 103 mEq/L (98-107); Glucose 133 mg/dL (70-105); Osmolality,Calculated 282 (280-300); Potassium 3.5 mEq/L (3.5-5.1); Sodium 133 mEq/L (136-145); eGFR For African Americans > 60 (> 60); eGFR For Non-African Americans > 60 (> 60)
[2019-05-05] MEDS: *HR* Heparin 5,000 UNIT/ML VIAL SQ SCH ×2 (05:15→17:52)
[2019-05-05] MEDS: Amiodarone Premix 360 MG/200 ML BAG IVC SCH (06:36)
[2019-05-05] MEDS: amLODIPine 5 MG TABLET PO SCH (08:10)
[2019-05-05] MEDS: *HR* OxyCODONE/APAP 5/325 TABLET PO PRN ×2 (08:10→20:21)
[2019-05-05] MEDS: Ranolazine 500 MG TAB.ER.12H PO SCH ×2 (08:10→20:22)
[2019-05-05] MEDS: Aspirin 81 MG TAB.CHEW PO SCH (08:10)
[2019-05-05] MEDS: Pantoprazole 40 MG VIAL IVP SCH (08:10)
[2019-05-05] MEDS: Furosemide 20 MG TABLET PO SCH (08:10)
[2019-05-05] MEDS: Chlorhexidine Rinse 15 ML MOUTHWASH MM SCH ×2 (08:10→20:24)
--- NOTE | 2019-05-05 08:54 | Cardiothoracic Progress Note ---
Date of Encounter: 05/05/19 Time of Encounter: 08:52 - Assessment and plan (1) CAD (coronary artery disease) Current Visit: Yes Status: Chronic We will switch the beta sarah to Toprol-XL 12-1/2 mg by mouth every day, which is the dose he was on at home. We will change the amiodarone from intravenous to by mouth. The patient will be transferred to the floor when a bed becomes available. Hopefully, he can be discharged by Sunday. Qualifiers: Coronary Disease-Associated Artery/Lesion type: [place] artery [place] vs. transplanted heart: [place] heart Associated angina: with unstable angina Qualified Code(s): I25.110 - Atherosclerotic heart disease of [place] coronary artery with unstable angina pectoris - Subjective Interval history: The patient is tolerating his diet and has no complaints. Vital Signs, Last 4 Hours Temp Pulse Resp BP Pulse Ox 05/05/19 08:34 98.3 F 05/05/19 08:00 70 20 128/66 94 05/05/19 07:22 12 95 05/05/19 07:00 69 13 118/62 94 05/05/19 06:00 66 12 116/62 95 05/05/19 05:00 67 13 115/62 99 Oxgyen Flow Rate Oxygen Flow Rate (LPM) 2 Clinical Data, last 8 Hours Output, Urine Amount 200 Output, Urine Amount 275 Output, Urine Amount 100 Weight 05/03/19 05/04/19 05/05/19 23:59 23:59 23:59 Weight 95.1 kg 96.7 kg 96.7 kg Lungs are clear to percussion and auscultation. Heart is in a normal sinus rhythm. All incisions are healing well without signs of infection and the sternum is stable. - Labs 05/05/19 03:45 05/05/19 03:45 Lab Results, Last 24 hours 05/05/19 05/05/19 03:45 03:45 WBC 7.5 Hgb 9.6 L Hct 29.2 L Plt Count 125 L Sodium 133 L Potassium 3.5 Chloride 103 Carbon Dioxide 25 BUN 23 Creatinine 0.76 Glucose 133 H Calcium 8.3 L - VTE Documentation of Mechanical Device: Graduated compression elastic hosiery Consult Discharge Plan - Plan Referrals: Jesus Prince MD [Partnered Physician] - (Per the cardiology office they will call the patient at home with a follow up appointment) [facility],PCP [Primary Care Provider] - 05/13/19 9:45 am Celso Romo MD [Partnered Physician] -
[2019-05-05] MEDS: Insulin LISPRO 300 UNITS/3 ML VIAL SQ SCH ×4 (09:19→20:35)
[2019-05-05] MEDS: *HR* Amiodarone 200 MG TABLET PO SCH ×2 (09:22→20:22)
[2019-05-05] MEDS: Metoprolol XL (24 HR) Succ 25 MG TAB.ER.24H PO SCH (09:22)
[2019-05-05] MEDS: Insulin DETEMIR 100 UNIT/ML X5UNITS SQ SCH (20:27)
[2019-05-06 04:17] LABS: Basophils % 0.5 %; Eosinophils # 0.1 K/mcL (0.0-0.6); Eosinophils % 2.3 %; Hematocrit 28.2 % (37.5-50.1); Hemoglobin 9.4 g/dL (12.9-16.9); Immature Granulocytes % 0.3 % (0-4); Lymphocytes # 1.1 K/mcL (0.6-4.6); Lymphocytes % 18.7 %; Mean Corpuscular HGB Conc 33.3 g/dL (31.6-35.5); Mean Corpuscular Hemoglobin 31.5 pg (28.0-33.3); Mean Corpuscular Volume 94.6 fL (83.0-100.0); Mean Platelet Volume 10.7 fL (9.4-12.4); Monocytes # 0.6 K/mcL (0.0-1.3); Monocytes % 10.3 %; Neutrophils # 4.1 K/mcL (1.6-8.9); Platelet Count 153 K/mcL (140-400); Red Blood Count 2.98 M/mcL (4.19-5.50); Red Cell Distribution Width 13.7 % (11.5-14.5); Segmented Neutrophils % 67.9 %; White Blood Count 6.1 K/mcL (4.3-11.1)
[2019-05-06 04:35] LABS: BUN/Creatinine Ratio 37 (6-26); Blood Urea Nitrogen 23 mg/dL (8-23); Calcium 8.1 mg/dL (8.6-10.3); Carbon Dioxide 25 mEq/L (23-29); Chloride 103 mEq/L (98-107); Glucose 73 mg/dL (70-105); Osmolality,Calculated 284 (280-300); Potassium 3.6 mEq/L (3.5-5.1); Sodium 136 mEq/L (136-145); eGFR For African Americans > 60 (> 60); eGFR For Non-African Americans > 60 (> 60)
[2019-05-06] MEDS: *HR* Heparin 5,000 UNIT/ML VIAL SQ SCH ×2 (06:36→16:41)
--- NOTE | 2019-05-06 07:50 | Cardiothoracic Progress Note ---
Date of Encounter: 05/06/19 Time of Encounter: 07:49 - Assessment and plan (1) CAD (coronary artery disease) Current Visit: Yes Status: Chronic We will plan to discharge the patient tomorrow. Qualifiers: Coronary Disease-Associated Artery/Lesion type: [place] artery [place] vs. transplanted heart: [place] heart Associated angina: with unstable angina Qualified Code(s): I25.110 - Atherosclerotic heart disease of [place] coronary artery with unstable angina pectoris - Subjective Interval history: The patient is beginning to ambulate and has no complaints. Vital Signs, Last 4 Hours Temp Pulse Resp BP Pulse Ox 05/06/19 07:27 98.1 F 05/06/19 07:18 18 97 05/06/19 07:00 66 14 115/58 95 05/06/19 06:00 63 18 120/63 96 05/06/19 05:00 66 18 114/60 95 05/06/19 04:00 60 16 115/57 95 Oxgyen Flow Rate Oxygen Flow Rate (LPM) 2 Clinical Data, last 8 Hours Output, Urine Amount 200 Output, Urine Amount 175 Output, Urine Amount 150 Weight 05/04/19 05/05/19 05/06/19 23:59 23:59 23:59 Weight 96.7 kg 96.7 kg 96.8 kg Lungs are clear to percussion and auscultation. Heart is in a normal sinus rhythm. All incisions are healing well without signs of infection and the sternum is stable. - Labs 05/06/19 03:40 05/06/19 03:40 Lab Results, Last 24 hours 05/06/19 05/06/19 03:40 03:40 WBC 6.1 Hgb 9.4 L Hct 28.2 L Plt Count 153 Sodium 136 Potassium 3.6 Chloride 103 Carbon Dioxide 25 BUN 23 Creatinine 0.63 L Glucose 73 Calcium 8.1 L - VTE Documentation of Mechanical Device: Graduated compression elastic hosiery Consult Discharge Plan - Plan Referrals: Jesus Prince MD [Partnered Physician] - (Per the cardiology office they will call the patient at home with a follow up appointment) [facility] [Primary Care Provider] - 05/13/19 9:45 am Celso Romo MD [Partnered Physician] -
[2019-05-06] MEDS: Pantoprazole 40 MG VIAL IVP SCH (09:01)
[2019-05-06] MEDS: amLODIPine 5 MG TABLET PO SCH (09:01)
[2019-05-06] MEDS: Metoprolol XL (24 HR) Succ 25 MG TAB.ER.24H PO SCH (09:01)
[2019-05-06] MEDS: Ranolazine 500 MG TAB.ER.12H PO SCH ×2 (09:01→20:19)
[2019-05-06] MEDS: *HR* Amiodarone 200 MG TABLET PO SCH ×2 (09:01→20:19)
[2019-05-06] MEDS: Aspirin 81 MG TAB.CHEW PO SCH (09:01)
[2019-05-06] MEDS: Furosemide 20 MG TABLET PO SCH (09:01)
[2019-05-06] MEDS: Chlorhexidine Rinse 15 ML MOUTHWASH MM SCH ×2 (09:02→20:19)
[2019-05-06] MEDS: Insulin LISPRO 300 UNITS/3 ML VIAL SQ SCH ×4 (09:02→20:20)
[2019-05-06] MEDS: *HR* OxyCODONE/APAP 5/325 TABLET PO PRN (09:04)
[2019-05-06] MEDS: Insulin DETEMIR 100 UNIT/ML X5UNITS SQ SCH (20:19)
[2019-05-07] MEDS: *HR* Heparin 5,000 UNIT/ML VIAL SQ SCH (05:49)
[2019-05-07] MEDS: Insulin LISPRO 300 UNITS/3 ML VIAL SQ SCH ×2 (07:51→11:54)
[2019-05-07] MEDS: amLODIPine 5 MG TABLET PO SCH (07:56)
[2019-05-07] MEDS: Furosemide 20 MG TABLET PO SCH (07:56)
[2019-05-07] MEDS: *HR* Amiodarone 200 MG TABLET PO SCH (07:56)
[2019-05-07] MEDS: Metoprolol XL (24 HR) Succ 25 MG TAB.ER.24H PO SCH (07:56)
[2019-05-07] MEDS: Aspirin 81 MG TAB.CHEW PO SCH (07:57)
[2019-05-07] MEDS: Chlorhexidine Rinse 15 ML MOUTHWASH MM SCH (07:57)
[2019-05-07] MEDS: Ranolazine 500 MG TAB.ER.12H PO SCH (07:57)
--- NOTE | 2019-05-07 08:10 | Discharge Summary ---
Orders not resulted at time of discharge: Pending orders 05/03/19 09:00 Urinalysis Reflex Cult & Micro [URIN] Stat Date of Encounter: 05/07/19 Time of Encounter: 08:04 - Discharge Diagnosis (1) CAD (coronary artery disease) Priority: Primary Status: Chronic Qualifiers: Coronary Disease-Associated Artery/Lesion type: [place] artery [place] vs. transplanted heart: [place] heart Associated angina: with unstable angina Qualified Code(s): I25.110 - Atherosclerotic heart disease of [place] coronary artery with unstable angina pectoris - Hospital Course Hospital course: Mr. Almaguer is a 73 year old male The patient is a 73-year-old gentleman who presented with coronary artery disease. On May 02, I took him to the operating room for coronary artery bypass grafting 2, utilizing the left internal mammary artery. On postoperative day #1, transfer orders were written, but no floor beds were available. His chest tubes were removed on postoperative day #1 and chest x-ray revealed no pneumothorax. The patient did have an episode of atrial fibrillation and was converted on amiodarone and by mouth beta kim. The patient otherwise did well and was discharged on May 07. At that time, he was afebrile. Lungs were clear to percussion and auscultation. Heart was in a normal sinus rhythm. All incisions were healing well without signs of infection and the sternum was stable. Discharge medications are on the med rec in include narcotics for pain. I did check the [place] automated Rx reporting system. Appropriate precautions were given and he was postoperative. He was given a one-week supply. He was to return to his previous and regular diet. He was to walk as much as possible, but to avoid heavy lifting for a total of 3 months after surgery. He was to avoid driving for 1 month. He was to follow up and see me in the office in 4 weeks as directed. [facility]. 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 He was to call sooner for any difficulties. - Time Spent with Patient Total time spent providing and/or coordinating discharge services: - Discharge Medications Prescriptions: New Amiodarone [Cordarone] 200 mg PO DAILY #30 tablet OxyCODONE/APAP 5/325 [Percocet 5/325 MG] 1 each PO Q4HR PRN 7 Days #20 tablet PRN Reason: Severe Pain Continued Ranolazine [Ranexa] 500 mg PO BID Atorvastatin [Lipitor] 20 mg PO HS Losartan [Cozaar] 25 mg PO TID Furosemide [Lasix] 20 mg PO DAILY Clopidogrel [Plavix] 75 mg PO DAILY Cholecalciferol (D-3) [Vitamin D] 2,000 unit PO DAILY Aspirin 81 mg PO DAILY Pantoprazole Sodium [Protonix] 40 mg PO DAILY Nitroglycerin [Nitrostat] 0.4 mg SL Q5M PRN PRN Reason: Chest Pain Insulin Glargine [Lantus] 18 unit SQ HS PRN PRN Reason: hyperglycemia amLODIPine [Norvasc] 5 mg PO DAILY Empagliflozin [Jardiance] 10 mg PO DAILY Isosorbide MONOnitrate (24 HR) [Imdur] 60 mg PO DAILY Metformin HCl [Metformin HCl ER] 1,000 mg PO BID Metoprolol XL (24 HR) Succ [Toprol Xl] 12.5 mg PO DAILY Home Medications: Aspirin 81 mg PO DAILY 01/23/17 [History] Atorvastatin [Lipitor] 20 mg PO HS 01/23/17 [History] Cholecalciferol (D-3) [Vitamin D] 2,000 unit PO DAILY 01/23/17 [History] Clopidogrel [Plavix] 75 mg PO DAILY 01/23/17 [History] Furosemide [Lasix] 20 mg PO DAILY 01/23/17 [History] Insulin Glargine [Lantus] 18 unit SQ HS PRN 01/23/17 [History] Losartan [Cozaar] 25 mg PO TID 01/23/17 [History] Nitroglycerin [Nitrostat] 0.4 mg SL Q5M PRN 01/23/17 [History] Pantoprazole Sodium [Protonix] 40 mg PO DAILY 01/23/17 [History] Ranolazine [Ranexa] 500 mg PO BID 01/23/17 [History] Empagliflozin [Jardiance] 10 mg PO DAILY 03/26/18 [History] amLODIPine [Norvasc] 5 mg PO DAILY 03/26/18 [History] Isosorbide MONOnitrate (24 HR) [Imdur] 60 mg PO DAILY 04/25/19 [History] Metformin HCl [Metformin HCl ER] 1,000 mg PO BID 04/26/19 [History] Metoprolol XL (24 HR) Succ [Toprol Xl] 12.5 mg PO DAILY 04/26/19 [History] Amiodarone [Cordarone] 200 mg PO DAILY #30 tablet 05/07/19 [Rx] OxyCODONE/APAP 5/325 [Percocet 5/325 MG] 1 each PO Q4HR PRN 7 Days #20 tablet 05/07/19 [Rx] Allergies/Adverse Reactions: Allergy/AdvReac Type Severity Reaction Status Date / Time tramadol [From Ultram] AdvReac See Verified 04/26/19 17:27 Comments Date of admission: 04/27/19 16:31 Primary care physician: [facility] Consults: 04/26/19 02:02 Consult to Cardiology [CONS] Routine Comment: Consulting Provider: Cardiology Marlene Reason for Consult: Presents for intermittent chest pain worse with exertion over past 5 weeks getting progressively worse. Reports taking up to 5-6 nitroglycerin tablets per day which improves/resolves pain. Follows with [facility] who has been planning outpatient heart catheterization. ER reviewed new ST depressions on EKG with Dr Farrell. Call Completed: No 04/28/19 11:15 Consult to Cardiothoracic Surgery [CONS] Routine Consulting Provider: Cardiothoracic Surgery Marlene Reason for Consult: CABG eval Time Notified: 11:00 Call Completed: Yes 05/02/19 11:02 Consult to Cardiac Rehabilitation-Phase1 [CONS] Routine Comment: Reason for Consult: Post open heart Call Completed: Yes Consult to Freight Unloader [CONS] Routine Reason for SW Consult: open heart 05/03/19 11:26 Consult for Pharmacy Education [CONS] Routine Reason for Consult: Post-Op Heart Call Completed: Yes Consult to Occupational Therapy [CONS] Routine Comment: Evaluate, develop and implement POC Reason for Consult: Post-Op Heart Does patient have active BEDREST order?: No Is patient medically & hemodynamically stable?: Yes Consult to Physical Therapy [CONS] Routine Comment: Evaluate, develop and implement POC Reason for Consult: Post open heart Does patient have active BEDREST order?: No Is patient medically & hemodynamically stable?: Yes Procedure(s) Performed: 05/02/2019. Coronary artery bypass grafting 2, utilizing the left internal mammary artery. Discharging clinician: Celso Romo Anticipated date of discharge: 05/07/19 Physical Examination Vital Signs, Last 4 Hours Pulse Resp BP Pulse Ox 05/07/19 07:50 93 05/07/19 07:39 75 05/07/19 07:23 17 95 05/07/19 07:00 65 21 103/60 94 05/07/19 06:00 68 18 120/59 98 05/07/19 05:00 63 20 116/59 95 05/07/19 04:08 65 - Patient Status Disposition: Home, Self-Care Functional capacity at discharge: independent ambulation Overall status at discharge: patient is progressing back to baseline - Discharge Instructions Follow Up With: Jesus Prince MD [Partnered Physician] - (Per the cardiology office they will call the patient at home with a follow up appointment) [facility] [Primary Care Provider] - 05/13/19 9:45 am Celso Romo MD [Partnered Physician] - Open Heart Registry Aspirin Cont/Prescribed at DC: Yes Beta Kim Cont/Prescribed at DC: Yes Statin Cont/Prescribed at DC: Yes JESUS/ARB Cont/Prescribed at DC: Not indicated - VTE Documentation of Mechanical Device: Graduated compression elastic hosiery
[2019-05-07 15:05] VITALS: BP 137/69
== END 2019-05-07 13:26 | disposition home or self-care (01) | DRG 234 ==
LOC: EMEROOARM 21:31 → 3BNU 21:31 → SUATTDRO 04-27 16:31 → 2NNU 04-28 11:23 → ICNU 05-02 09:38
PROVIDERS: ADMIT Family Medicine; ATTEND Internal Medicine

== ENCOUNTER 2020-05-14 16:15 | Observation (INO) ==
[2020-05-14] MEDS ORDERED: Isovue-370 500 ML BOTTLE IVP ONE (16:26)
[2020-05-14 17:09] LABS: Basophils # 0.1 K/mcL (0.0-0.2); Basophils % 0.8 %; Eosinophils # 0.1 K/mcL (0.0-0.6); Hemoglobin 13.9 g/dL (12.9-16.9); Immature Granulocytes % 0.2 % (0-4); Lymphocytes # 1.6 K/mcL (0.6-4.6); Lymphocytes % 25.9 %; Mean Corpuscular HGB Conc 31.6 g/dL (31.6-35.5); Mean Corpuscular Hemoglobin 29.1 pg (28.0-33.3); Mean Corpuscular Volume 92.2 fL (83.0-100.0); Mean Platelet Volume 9.6 fL (9.4-12.4); Monocytes # 0.4 K/mcL (0.0-1.3); Monocytes % 7.3 %; Neutrophils # 3.9 K/mcL (1.6-8.9); Platelet Count 221 K/mcL (140-400); Red Blood Count 4.77 M/mcL (4.19-5.50); Red Cell Distribution Width 13.7 % (11.5-14.5); Segmented Neutrophils % 64.8 %
[2020-05-14 17:33] LABS: Alanine Aminotransferase 17 Units/L (7-52); Albumin 4.3 g/dL (3.5-5.7); Albumin/Globulin Ratio 1.5 (1.1-2.2); Alkaline Phosphatase 61 Units/L (34-104); Aspartate Amino Transferase 19 Units/L (13-39); BUN/Creatinine Ratio 24 (6-26); Bilirubin,Total 0.7 mg/dL (0.3-1.0); Blood Urea Nitrogen 23 mg/dL (8-23); Calcium 9.2 mg/dL (8.6-10.3); Carbon Dioxide 24 mEq/L (23-29); Chloride 105 mEq/L (98-107); Globulin 2.8 g/dL (2.4-3.5); Glucose 123 mg/dL (70-105); Osmolality,Calculated 295 (280-300); Sodium 140 mEq/L (136-145); Total Protein 7.1 g/dL (6.4-8.9); Troponin I < 0.03 ng/mL (< 0.04); eGFR For African Americans > 60 (> 60); eGFR For Non-African Americans > 60 (> 60)
[2020-05-14] MEDS ORDERED: Acetaminophen 325 MG TABLET PO PRN (19:32)
[2020-05-14] MEDS ORDERED: Naloxone 0.4 MG/ML INJ IVP PRN (19:32)
[2020-05-14] MEDS ORDERED: Perflutren Lipid Microsphere 1.3 ML in 0.9 % Sodium Chloride 8.7 ML IVP PRN (19:32)
[2020-05-14] MEDS ORDERED: *HR* Promethazine 25 MG/ML VIAL IVP PRN (19:32)
[2020-05-14] MEDS ORDERED: *HR* Dextrose 50 % in Water (Vial) 50 ML VIAL IVP PRN (20:56)
[2020-05-14] MEDS ORDERED: Dextrose Gel 15 GM/37.5 ML TUBE PO PRN ×2 (20:56)
[2020-05-14] MEDS ORDERED: D5% in Water 1,000 ML IVC PRN (20:56)
[2020-05-14 23:42] LABS: Bilirubin,Urine Negative (Negative); Blood,Urine Negative (Negative); Clarity,Urine Clear (Clear); Color,Urine Light-Yellow (Yellow); Glucose,Urine (UA) >=1000 mg/dL (Normal); Ketones,Urine Trace mg/dL (Negative); Leukocyte Esterase,Urine Negative (Negative); Nitrite,Urine Negative (Negative); Protein,Urine Trace mg/dL (Neg-Trace); RBC,Urine 0-3 per hpf (0-3); Specific Gravity,Urine > 1.030 (1.010-1.025); Urobilinogen,Urine Normal (Normal)
[2020-05-15] MEDS: Insulin LISPRO 300 UNITS/3 ML VIAL SQ SCH ×4 (00:58→15:45)
[2020-05-15] MEDS: Insulin DETEMIR 100 UNIT/ML X5UNITS SQ SCH ×2 (00:59→20:45)
[2020-05-15] MEDS: Metoprolol XL (24 HR) Succ 25 MG TAB.ER.24H PO SCH ×2 (01:00→20:48)
[2020-05-15] MEDS: amLODIPine 5 MG TABLET PO SCH ×2 (01:01→09:06)
[2020-05-15 01:29] LABS: INR 1.1; Prothrombin Time 12.3 Seconds (9.4-12.1)
[2020-05-15 01:38] LABS: Alanine Aminotransferase 14 Units/L (7-52); Albumin 3.8 g/dL (3.5-5.7); Albumin/Globulin Ratio 1.5 (1.1-2.2); Alkaline Phosphatase 53 Units/L (34-104); Aspartate Amino Transferase 17 Units/L (13-39); BUN/Creatinine Ratio 24 (6-26); Bilirubin,Total 0.9 mg/dL (0.3-1.0); Blood Urea Nitrogen 22 mg/dL (8-23); Calcium 8.8 mg/dL (8.6-10.3); Carbon Dioxide 25 mEq/L (23-29); Chloride 106 mEq/L (98-107); Chol/HDL Ratio 2.4 (0-4.9); Cholesterol 106 mg/dL (< 200); Globulin 2.5 g/dL (2.4-3.5); Glucose 98 mg/dL (70-105); HDL Cholesterol 44 mg/dL (40-59); LDL Cholesterol,Calculated 49 mg/dL (< 100); Magnesium 1.8 mg/dL (1.6-2.6); Osmolality,Calculated 295 (280-300); Phosphorous 3.6 mg/dL (2.7-4.5); Potassium 3.9 mEq/L (3.5-5.1); Sodium 141 mEq/L (136-145); Total Protein 6.3 g/dL (6.4-8.9); Triglycerides 66 mg/dL (< 150); eGFR For African Americans > 60 (> 60); eGFR For Non-African Americans > 60 (> 60)
[2020-05-15 08:07] LABS: Estimated Average Glucose 157 mg/dl
[2020-05-15] MEDS ORDERED: Bupivacaine-MPF 0.25% 10 ML VIAL INFILT ONE (09:03)
[2020-05-15] MEDS ORDERED: MethylPREDNISolone Acet(DEPOT) 40 MG/ML VIAL IM ONE (09:06)
[2020-05-15] MEDS: Aspirin 81 MG TAB.CHEW PO SCH (09:06)
[2020-05-15] MEDS: (Empagliflozin [Jardiance] 25 MG) PO SCH (09:06)
[2020-05-15] MEDS: Isosorbide MONOnitrate (24 HR) 30 MG TAB.ER.24H PO SCH (09:06)
[2020-05-15] MEDS: Cholecalciferol (D-3) 1,000 UNIT (25MCG) TABLET PO SCH (09:06)
[2020-05-15] MEDS: CarBAMazepine 100 MG TABLET PO SCH ×2 (12:33→20:48)
[2020-05-15] MEDS: *HR* Heparin 5,000 UNIT/ML VIAL SQ SCH (17:07)
[2020-05-16 01:15] LABS: Hematocrit 42.1 % (37.5-50.1); Hemoglobin 13.4 g/dL (12.9-16.9); Mean Corpuscular HGB Conc 31.8 g/dL (31.6-35.5); Mean Corpuscular Hemoglobin 29.5 pg (28.0-33.3); Mean Corpuscular Volume 92.7 fL (83.0-100.0); Mean Platelet Volume 10.1 fL (9.4-12.4); Platelet Count 209 K/mcL (140-400); Red Blood Count 4.54 M/mcL (4.19-5.50); Red Cell Distribution Width 13.7 % (11.5-14.5); White Blood Count 6.4 K/mcL (4.3-11.1)
[2020-05-16] MEDS: *HR* Heparin 5,000 UNIT/ML VIAL SQ SCH (06:37)
[2020-05-16] MEDS: Insulin LISPRO 300 UNITS/3 ML VIAL SQ SCH ×2 (07:42→12:50)
[2020-05-16] MEDS: Isosorbide MONOnitrate (24 HR) 30 MG TAB.ER.24H PO SCH (07:42)
[2020-05-16] MEDS: amLODIPine 5 MG TABLET PO SCH (07:42)
[2020-05-16] MEDS: Aspirin 81 MG TAB.CHEW PO SCH (07:42)
[2020-05-16] MEDS: (Empagliflozin [Jardiance] 25 MG) PO SCH (07:43)
[2020-05-16] MEDS: Cholecalciferol (D-3) 1,000 UNIT (25MCG) TABLET PO SCH (07:43)
[2020-05-16] MEDS: CarBAMazepine 100 MG TABLET PO SCH (07:43)
[2020-05-16] MEDS ORDERED: Furosemide 20 MG TABLET PO SCH (09:00)
[2020-05-16 11:50] VITALS: BP 142/76
[2020-05-16] MEDS ORDERED: predniSONE 20 MG TABLET PO SCH (14:30)
[2020-05-17 22:17] LABS: Hematocrit RBC Folate 43.3 %
== END 2020-05-16 15:27 | disposition home or self-care (01) ==
LOC: EMEROOARM 16:15 → 3BNU 16:15
PROVIDERS: ADMIT Internal Medicine; ATTEND Internal Medicine